=== PATIENT | female | born 1955 | race Caucasian/White ===

== ENCOUNTER 2018-12-22 07:11 | Outpatient (CLI) | payer MEDICARE, SELFPAY ==
[2018-12-22 09:02] LABS: Anion Gap 8.7 mmol/L (3-11); BUN 19 mg/dL (7-18); CO2 25.3 mmol/L (21.0-32.0); CREATININE 0.96 mg/dL (0.55-1.02); Calcium 8.9 mg/dL (8.5-10.1); Chloride 108 mmol/L (98-107); Cholesterol 160 mg/dL (50-200); Estimated GFR 58.51 (mL/min/1.73m2); Glucose 111 mg/dL (70-100); HDL Cholesterol 37 mg/dL (40-60); LDL CHOLESTEROL 96 mg/dL (<100); Sodium 142 mmol/L (136-145); Triglyceride 187 mg/dL (30-150)
== END 2018-12-22 07:31 ==
PROVIDERS: PCP Internal Medicine; Visit Provider Internal Medicine
DX: I25.10 Atherosclerotic heart disease of native coronary artery without angina pectoris (principal); I10 Essential (primary) hypertension
CPT/HCPCS: 36415; 80048; 80061; 83721

== ENCOUNTER 2019-05-17 13:03 | Outpatient (REF) | payer MEDICARE, SELFPAY | END 2019-05-17 13:23 | LOC: LBN 13:03 | PROVIDERS: PCP Internal Medicine; Visit Provider Internal Medicine | DX: R30.0 Dysuria (principal); R31.9 Hematuria, unspecified | CPT/HCPCS: 87077; 87086; 87186 ==

== ENCOUNTER 2019-07-06 00:11 | Outpatient (CLI) | payer MEDICARE, SELFPAY ==
--- NOTE | 2019-07-06 08:30 | ETT_ITS ---
*[facility]* *[facility]* [address] [place] [address] Stress Electrocardiography Martin protocol Date of study: 07/06/2019 *PATIENT PRESENTATION* Height: 154.9cm (61in) Blood Pressure: Weight: 72.7kg (160lb) BSA: 1.8m^2 Ordering physician: Gisselle Cope Impressions: - Normal study after maximal exercise with no EKG changes. - No objective findings of ischemia. - However, subjectively did describe symptoms of shoulder pain with exertion. Summary: 1. Stress: The target heart rate was achieved. Recommendations: Suggest referral to cardiology for further assessment. Indication: I25.10. History: REASON FOR TESTING: FOR THE PAST 6 YEAR PATIENT REPORTS MIDSTERNAL/EPIGASTRIC CHEST PAIN AND LEFT SHOULDER PAIN WHEN BREATHING IN COLD AIR. SHE STATES THESE SYMPTOMS ARE SIMILAR TO SYMPTOMS [SHE HAD] PRIOR TO STENT PLACEMENT--BUT NOT SEVERE. SHE ALSO REPORTS OCCASIONAL CHEST PAIN WITH AND WITHOUT ACTIVITY, AND TIMES WHERE SHE FEELS LIKE SHE CAN'T CATCH MY BREATH. PATIENT DENIES CHEST PAIN UPON ARRIVAL TO TESTING TODAY. SIGNIFICANT PAST MEDICAL HISTORY: ASCVD, 1 STENT--MID LAD IN 2012, PREDIABETES, GERD, ANXIETY. SMOKING STATUS: NEVER. EXERCISE ROUTINE: GARDENING SPLITTING (WITH WOOD SPLITTER) AND STACKING WOOD, DAILY ADL'S. Risk factors: Family history of coronary artery disease. Hypertension. Dyslipidemia. Cholesterol: 160mg/dl. HDL: 37mg/dl. LDL: 96mg/dl. Triglycerides: 187mg/dl. ALLERGIES: MORPHINE, PENICILLIN, BEES, OXYCODONE, TALWIN, SUMATRIPTAN. MEDICATIONS: TOPIRAMATE 200 MG BID, PROMETHAZINE 25 MG PRN, NITRO 0.4 MG PRN, HYDROXYZINE 25 MG HS, NEXIUM 40 MG DAILY, MIGRANAL 0.5 MG NS PRN, VITAMIN B 12--250 MG DAILY, CLONAZEPAM 0.5 MG BID, VITAMIN D 1000 UNITS DAILY, TUMS BID, ATORVASTATIN 40 MG DAILY, ATENENOL 25 MG DAILY, ASPIRIN 325 MG DAILY. Protocol: Martin protocol. Baseline ECG: SINUS RHYTHM. HR 79 BPM. Stress protocol: + +---+ + !Stage !HR !BP (mmHg) ! + +---+ + !Baseline supine !79 !120/72 (88) ! + +---+ + !Baseline standing !80 !132/80 (97) ! + +---+ + !Stage I; 1.7mph, 10degrees; 3 min !117!134/86 (102)! + +---+ + !Stage II; 2.5mph, 12degrees; 3 min!133!146/82 (103)! + +---+ + !Peak stress !143! ! + +---+ + !Recovery; 1 min !122!166/70 (102)! + +---+ + !Recovery; 3 min !119!154/68 (97) ! + +---+ + !Recovery; 6 min !103!144/72 (96) ! + +---+ + !Recovery; 9 min !97 !120/70 (87) ! + +---+ + !Recovery; 11 min !91 ! ! + +---+ + * Stress results: STRESS TEST ENDED IN 7 MINUTES 8 SECONDS. THIS NURSE STOPPED STRESS TEST PATIENT WAS REPORTING LEFT SHOULDER SHARP PAIN (4/10), WAS CRYING, HAD FACIAL GRIMACING, AND KEPT STATING I'M ALL RIGHT, I'M ALL RIGHT NORMAL HEART RATE AND BLOOD PRESSURE RESPONSE TO EXERCISE. MAX HEART RATE: 143. 92 % OF TARGET HEART RATE ACHIEVED. MET'S: 8.78. NO ECTOPY. LEFT SHOULDER SHARP PAIN (2/10) AND LEFT WRIST NEEDLE FEELING DISCOMFORT AT 3 MINUTES 49 SECONDS OF EXERCISE. LEFT SHOULDER SHARP PAIN (4/10) AT 5 MINUTES 22 SECONDS OF EXERCISE. LEFT SHOULDER SHARP PAIN (2/10) AT 8 MINUTES [address] DANIELLE, CLEAT THROWER, NOTIFIED. PATIENT LEFT STRESS LAB WITH 2/10 LEFT SHOULDER PAIN, AWARE. PATIENT STATED SHE FELT OKAY TO GO HOME AND WAS ENCOURAGED TO GO TO THE ER AT ANY POINT IF SHE FELT SHE NEEDED TO BE SEEN. NAUSEA AT 6 MINUTES AND 4 SECONDS OF EXERCISE. NAUSEA SUBSIDED BY 2 MINUTES 30 SECONDS OF RECOVERY. NO SIGNIFICANT ST SEGMENT CHANGES. AVERAGE FUNCTIONAL CAPACITY. The target heart rate was achieved. The rate-pressure product for the peak heart rate and blood pressure was 51564fu Hg/min. Study data: Marlene Danielle MD supervised and was readily available during the procedure. This study was interpreted by [facility]. Study status: Routine. Consent: The risks, benefits, and alternatives to the procedure were explained to the patient and informed consent was obtained. Procedure: Initial setup. A baseline ECG was recorded. Surface ECG leads and manual cuff blood pressure measurements were monitored. Heart sounds: Normal. Lung sounds: Normal. Treadmill exercise testing was performed using the Martin protocol. Study completion: The patient tolerated the procedure well and was discharged from the lab. Discharge: The patient left the laboratory in stable condition. Birthdate: Patient birthdate: 1955. Sex: Gender: female. Study date: Study date: 07/06/2019. Study time: 00:01 AM. Signature Documentation: The Stress ECG portion of this study was interpreted by Marlene Danielle MD. Electronically signed by Marlene Danielle 07/06/2019 11:38
== END 2019-07-06 00:31 ==
PROVIDERS: PCP Internal Medicine; Visit Provider Internal Medicine
DX: I25.10 Atherosclerotic heart disease of native coronary artery without angina pectoris (principal); M25.512 Pain in left shoulder; R07.89 Other chest pain; R73.03 Prediabetes; I10 Essential (primary) hypertension; E78.00 Pure hypercholesterolemia, unspecified
CPT/HCPCS: 93016; 93018; 93017

== ENCOUNTER 2019-10-09 08:49 | Outpatient (CLI) | payer MEDICARE, SELFPAY | END 2019-10-09 09:09 | PROVIDERS: PCP Internal Medicine; Visit Provider Internal Medicine Cardiovascular Disease | DX: M25.512 Pain in left shoulder (principal); Z98.61 Coronary angioplasty status | CPT/HCPCS: 99203; 99214; 93005; 93010 ==

== ENCOUNTER 2019-10-11 08:34 | Emergency (ER) | payer MEDICARE, SELFPAY ==
[2019-10-11] VITALS (26 sets, daily range): BP systolic 107–139; BP diastolic 58–70; PULSE 53–77; RESP 12–18; TEMP 36.2; O2SAT 92–100
--- NOTE | 2019-10-11 08:58 | ED.GENADUL_ITS ---
Discharge Plan Disposition Patient Disposition: HOME Condition: Improving Discharge Details Chief Complaint: Dizzy/Sync Clinical Impression: Acute labyrinthitis Primary Care Provider: Gisselle Cope ED Provider: Rosalino Guerrero Home Meds and New Rx's Prescriptions: No Action nitroglycerin [Nitrostat] 0.4 mg tablet, sublingual 0.4 mg Sublingual Q5 MIN PRN X3 PRN (Reason: chest pain) Qty: 30 RF: 0 dihydroergotamine [Migranal] 1 ML spray,non-aerosol 0.5 mg NS ONCE RF: 0 cyanocobalamin (vitamin B-12) [Vitamin B-12] 250 MCG tablet 250 mcg PO DAILY RF: 0 hydroxyzine HCl 25 MG tablet 25 mg PO HS RF: 0 cholecalciferol (vitamin D3) [Vitamin D3] 400 UNIT capsule 1,000 unit PO DAILY RF: 0 clonazepam 0.5 MG tablet 0.5 mg PO BID Qty: 1 RF: 0 calcium carbonate [Tums Ultra] 400 MG tablet,chewable 2 tab PO BID Qty: 1 RF: 0 atenolol 25 mg tablet 25 mg PO DAILY Qty: 90 RF: 3 atorvastatin 40 mg tablet 40 mg PO DAILY Qty: 90 RF: 3 esomeprazole magnesium [Nexium] 40 mg capsule,delayed release(DR/EC) 40 mg PO DAILY Qty: 90 RF: 3 topiramate [Topamax] 200 mg tablet 200 mg PO BID RF: 0 promethazine [Promethegan] 25 MG suppository 25 mg RC PRN PRNRF: 0 aspirin,buffd-calcium carb-mag 325 MG tablet 325 mg PO DAILY RF: 0 Medical Decision Making 64-year-old female presents from home complaining of dizziness and nausea that is worse with movement of the head. She will endorse some significant increase in anxiety at home. She has otherwise recently been well. Vital signs are normal and her neurologic exam is without deficit. Presentation seems most consistent with peripheral labyrinthitis. Most exclude an intracranial process, electrolyte abnormality, dehydration, acute coronary syndrome. Patient had screening EKG obtained, referred for laboratory testing, CT scan of the head. Labs are reassuring with a white count of 7, hematocrit 40, platelets 235. Chemistries sodium 144, potassium 3.9, chloride 108, bicarb 22, BUN 18, creatinine 1.0, LFTs unremarkable, troponin negative. CT scan of the head without acute intracranial findings. Following 1 L fluid, 2 mg of Valium, patient with some improvement. She is able to ambulate and urinate. Most consistent with a labyrinthitis, will offer meclizine for home. She stable and improving. Discussed with her home management as well as indications for emergent reevaluation. Lab Data Lab results reviewed: Yes I reviewed the patient's lab results. Labs: Laboratory Results - last 24 hr 10/11/19 10/11/19 08:47 08:47 WBC 7.27 RBC 4.12 Hgb 13.3 Hct 40.3 MCV 97.8 H MCH 32.3 MCHC 33.0 RDW 12.4 Plt Count 235 MPV 9.8 Immature Gran % 0.1 Neutrophils % 63.5 Lymphocytes % 22.1 Monocytes % 12.1 Eosinophils % 1.9 Basophils % 0.3 Absolute Neutrophils 4.61 Absolute Lymphocytes 1.61 Absolute Monocytes 0.88 H Absolute Eosinophils 0.14 Absolute Basophils 0.02 Sodium 144 Potassium 3.9 Chloride 108 H Carbon Dioxide 22.0 Anion Gap 14.0 H BUN 18 Creatinine 1.05 H Estimated GFR/1.73 m2 52.60 Glucose 128 H Calcium 8.9 Magnesium 2.2 Total Bilirubin 0.3 AST 13 L ALT 14 Alkaline Phosphatase 94 Troponin I < 0.05 Total Protein 7.6 Albumin 3.8 ECG Data Attestation: I personally reviewed and interpreted this ECG (s) as follows: Interpretation: Normal sinus rhythm, rate of 67, the QRS is narrow, there is low voltage throughout, no ST segment elevation. HPI General Mode of arrival: ambulatory . Date/Time Provider Initiated Documentation: 10/11/19 08:43 . Limitations to Documentation: no limitations . Information obtained by: patient and family . History of Present Illness 64 year old F presents to the emergency department with the chief complaint of Dizziness and vomiting, described as moderate and similar to prior episodes, and is localized to the head. Patient reports no radiation. Patient started experiencing this hour(s) and it has been intermittent. Rest improves symptom(s), Movement worsens symptoms . Patient notes loss of appetite, malaise, nausea/vomiting and other (No difficulty with speech. Able to walk from car.); denies chest pain, headaches and syncope. Patient did receive the following treatments prior to arrival, none Related Data Home Medications Medication Instructions Recorded Confirmed cyanocobalamin (vitamin B-12) 250 mcg PO DAILY 01/04/13 10/11/19 [Vitamin B-12] dihydroergotamine [Migranal] 0.5 mg NS ONCE spray 01/04/13 10/11/19 hydroxyzine HCl 25 mg PO HS 01/09/13 10/11/19 promethazine [Promethegan] 25 mg RC PRN PRN 05/05/13 10/11/19 cholecalciferol (vitamin D3) 1,000 unit PO DAILY 10/23/13 10/11/19 [Vitamin D] aspirin,buffd-calcium carb-mag 325 mg PO DAILY 04/13/14 10/11/19 calcium carbonate [Tums Ultra] 2 tab PO BID #1 tab.chew 11/30/14 10/11/19 clonazepam 0.5 mg PO BID #1 11/30/14 10/11/19 atenolol 25 mg tablet 25 mg PO DAILY #90 tab-cap 11/29/18 10/11/19 atorvastatin 40 mg tablet 40 mg PO DAILY #90 tab-cap 11/29/18 10/11/19 esomeprazole magnesium 40 mg 40 mg PO DAILY #90 cap 11/29/18 10/11/19 capsule,delayed release topiramate 200 mg tablet 200 mg PO BID 05/17/19 10/11/19 nitroglycerin 0.4 mg sublingual 0.4 mg SUBLINGUAL Q5 MIN PRN X3 06/27/19 10/11/19 tablet PRN #30 tab Previous Rx's Medication Instructions Recorded atenolol 25 mg tablet 25 mg PO DAILY #90 tab-cap 11/29/18 atorvastatin 40 mg tablet 40 mg PO DAILY #90 tab-cap 11/29/18 esomeprazole magnesium 40 mg 40 mg PO DAILY #90 cap 11/29/18 capsule,delayed release nitroglycerin 0.4 mg sublingual 0.4 mg SUBLINGUAL Q5 MIN PRN X3 06/27/19 tablet PRN #30 tab Allergies Allergy/AdvReac Type Severity Reaction Status Date / Time morphine Allergy Skin Rash Verified 10/11/19 08:41 Penicillins Allergy Skin Rash Verified 10/11/19 08:41 venom-honey bee Allergy Psychosis Verified 10/11/19 08:41 oxycodone AdvReac nausea and Verified 10/11/19 08:41 vomiting pentazocine lactate AdvReac Visual Verified 10/11/19 08:41 [From Alyce] Disturbances sumatriptan AdvReac Cardiac Verified 10/11/19 08:41 Dysrythmia General Stated Complaint: Dizzy/Sync REID: 2 Review of Systems Narrative: Denies recent illness. She has had significant increase in anxiety due to conflict in her town [facility] Surgical History (Updated 08/09/18 @ 11:31 by Kimberley Montgomery) Abdominal hysterectomy Appendectomy Cholecystectomy Oophrectomy, Both Family History Mother Essential hypertension Father Essential hypertension Sister Essential hypertension Brother Essential hypertension Social History Smoking/Tobacco Use Status: Never Alcohol Intake: never Drug use: Occasionally Substance use type: marijuana Household members: spouse Housing: house Communication Needs: None Current gender identity: female What is your relationship status?: Panel score (0-1 are the most socially isolated patients): 1 What type of physical activity do you participate in: none Seatbelt use: always Drive intox or ride w/intox public transit trolley driver: No Working smoke detector in home: Yes Carbon monox detector in home: Yes Do you feel safe at home: Yes Do you feel safe in your relationship?: Yes Exam Narrative Exam Narrative: GEN: awake, alert, oriented 3. Pleasant, well groomed, inte ractive. HEAD: Normocephalic, atraumatic ENT: Mucous membranes moist, oropharynx unremarkable, External ear exam unremarkable EYES: PERRL, EOMI NECK: Full ROM, no JAYCEE, no menigismus CHEST/RESP: Nontender, clear to auscultation bilateral, no wheeze/rhonchi/rales CARDIOVASCULAR: RRR, no murmur, rub markus. 2+ Rad pulse bilateral ABDOMEN: Soft, nontender, no mass. +Bowel sounds EXT: Full ROM, no edema, no rash Neuro: Grossly normal neurologic exam, conversant, interactive. Cranial nerves II through XII intact. Zafpei-bv-algi intact. Visual cesar intact to confrontation Psych: Speech fluent, thoughts congruent, affect normal Course Vital Signs Vital signs: Vital Signs Temperature 36.2 C L 10/11/19 08:37 Pulse 77 10/11/19 08:37 Respiratory Rate 16 10/11/19 08:37 Pulse Oximetry 99 10/11/19 08:37 Temperature 36.2 C L 10/11/19 08:37 Temperature Source Temporal Artery Scan 10/11/19 08:37 Pulse 77 10/11/19 08:37 Respiratory Rate 18 10/11/19 08:37 Respiratory Effort Non-Labored 10/11/19 08:37 Respiratory Depth Normal 10/11/19 08:37 Respiratory Pattern Normal 10/11/19 08:37 Pulse Oximetry 99 10/11/19 08:37 Oxygen Delivery Method Room Air 10/11/19 08:37 Oxygen Flow Rate 0 10/11/19 08:37 Pain Level 4 10/11/19 08:37
[2019-10-11] MEDS: Normal Saline 1,000 ML 1000 ML IV (09:07)
[2019-10-11] MEDS: diazePAM 10 MG/2 ML SYR 2 MG IVP (09:07)
[2019-10-11] MEDS: Ondansetron 4 MG/2 ML VIAL IVP (09:07)
[2019-10-11 09:18] LABS: Abs Immature Grans 0.01 k/cumm (0.0-0.09); Absolute Basophil Count 0.02 k/cumm (0.0-0.2); Absolute Eosinophil Count 0.14 k/cumm (0.0-0.7); Absolute Lymphocyte Count 1.61 k/cumm (1.2-3.4); Absolute Monocyte Count 0.88 k/cumm (0.11-0.7); Absolute Neutrophil Count 4.61 k/cumm (1.2-6.7); Basophils % 0.3; Eosinophils % 1.9; HCT 40.3 % (36.0-46.0); HGB 13.3 g/dL (12.0-15.5); Immature Grans % 0.1; Lymphocytes % 22.1; Mean Corpuscular Hemoglobin 32.3 pg (27.0-33.0); Mean Corpuscular Volume 97.8 fL (80-95); Mean Platelet Volume 9.8 fL (8.0-11.0); Monocytes % 12.1; Neutrophils % 63.5; Platelet Count 235 x1000/uL (130-400); RBC 4.12 m/cumm (4.00-5.20); RBC Distribution Width 12.4 % (11.7-14.6); White Blood Cell Count 7.27 k/cumm (4.4-10.8)
[2019-10-11 09:34] LABS: ALT 14 U/L (14-59); AST 13 U/L (15-37); Albumin 3.8 g/dL (3.4-5.0); Alkaline Phosphatase 94 U/L (46-116); BUN 18 mg/dL (7-18); Bilirubin, Total 0.3 mg/dL (0.2-1.0); CREATININE 1.05 mg/dL (0.55-1.02); Calcium 8.9 mg/dL (8.5-10.1); Chloride 108 mmol/L (98-107); Glucose 128 mg/dL (74-106); Magnesium 2.2 mg/dL (1.8-2.4); Potassium 3.9 mmol/L (3.5-5.1); Sodium 144 mmol/L (136-145); Total Protein 7.6 g/dL (6.4-8.2)
[2019-10-11 09:35] LABS: Troponin I < 0.05 ng/Ml (<0.06)
--- NOTE | 2019-10-11 09:43 | DI.CT_ITS ---
EXAM: CT HEAD WO CLINICAL HISTORY: dizziness, vomiting TECHNIQUE: The exam was performed utilizing the usual protocol. COMPARISON: No exams were available for comparison FINDINGS: There is normal deluca-white matter differentiation. No acute intracranial hemorrhage is present. The re is no acute midline shift or mass effect. The ventricles are intact. The basilar cisterns are pa tent. No fluid levels are seen in the visualized paranasal sinuses. Mastoid air cells are well pneu matized. The calvarium is intact. IMPRESSION: No acute intracranial process.
--- NOTE | 2019-10-11 10:37 | DI.VRAD_ITS ---
PROCEDURE INFORMATION: Exam: CT Head Without Contrast Exam date and time: 10/11/2019 9:44 AM Age: 64 years old Clinical indication: Dizziness and other: Vomitting TECHNIQUE: Imaging protocol: Computed tomography of the head without contrast. Radiation optimization: All CT scans at this facility use at least one of these dose optimization techniques: automated exposure control; mA and/or kV adjustment per patient size (includes targeted exams where dose is matched to clinical indication); or iterative reconstruction. COMPARISON: No relevant prior studies available. FINDINGS: Brain: Normal. No hemorrhage. Unremarkable white matter. No mass effect. Ventricles: Normal. No ventriculomegaly. Bones/joints: Unremarkable. No acute fracture. Sinuses: Visualized sinuses are unremarkable. No fluid levels. Mastoid air cells: Visualized mastoid air cells are well aerated. Soft tissues: Unremarkable. IMPRESSION: No CT evidence for acute intracranial abnormality. Dictated and Authenticated by: Josef Silverio MD. Ordering:ONEIDA Jerry MD
[2019-10-11] MEDS: Meclizine 12.5 MG TAB PO (12:07)
== END 2019-10-11 12:12 | disposition home or self-care (01) ==
PROVIDERS: Emergency Provider Emergency Medicine; PCP Internal Medicine
DX: R42 Dizziness and giddiness (principal); R11.0 Nausea; H83.09 Labyrinthitis, unspecified ear; F41.9 Anxiety disorder, unspecified
CPT/HCPCS: 36415; 80053; 93005; 96361; 96374; 96375; 99285; 70450; 83735; 84484; 85025; 93010; 99284; J2405; J3360

== ENCOUNTER 2019-10-24 13:25 | Outpatient (CLI) | payer MEDICARE, SELFPAY ==
--- NOTE | 2019-10-24 14:06 | DI.RAD_ITS ---
EXAM: XR SHOULDER LT COMPLETE 2+V INDICATION: Left Shoulder Pain. COMPARISON: No exams were available for comparison TECHNIQUE: 2D digital imaging was performed. FINDINGS: There is mild spurring at the AC joint and glenoid. Humeral head is normally positioned. A coronary artery stent is incidentally noted. IMPRESSION: Mild degenerative changes.
== END 2019-10-24 13:45 ==
PROVIDERS: PCP Internal Medicine; Referring Provider Internal Medicine; Visit Provider Student in an Organized Health Care Education/Training Program
DX: M25.512 Pain in left shoulder (principal); M19.012 Primary osteoarthritis, left shoulder
CPT/HCPCS: 99203; 99214; 73030

== ENCOUNTER 2020-04-17 04:43 | Outpatient (CLI) | payer MEDICARE, SELFPAY ==
--- NOTE | 2020-04-17 12:00 | NS.NUTBLAN_ITS ---
Jennifer is a 64 y/o female w/ recent dx DM2 and long hx prediabetes. She has been controlling BG with diet successfully but now presents with elevated A1c of 6.1. She has hx of stent placement, HLD, HTN. On Statin. On B-12 for micronutrient needs. She requires DM edu with self management techniques and practice using glucometer to help with understanding desired BG ranges. She reports that she eats a healthy diet and we reviewed her typical meals, beverages and physical activities. She appears motivated and mindful about food choices and provided appropriate examples and [facility]. She is concerned about her weight. She is currently 155lb which is 148% IBW. C/o headaches. Enc adequate fluids. Intervention: Provided education on menu planning with emphasis on incorporating proteins whenever any CHO's are included in the meal to help with BG spikes. Reviewed CHO counting and gave her some charts with the appropriate measurements of foods to achieve a goal of <60g/CHO per meal period. Explained the difference between refined and simple CHO's and the importance of fiber for BG control and mitigating LDL levels. This RD worked with Jennifer to take her BG ~1.5 hrs post prandial which was 94 ml/dl. Provided a review and literature of desired glucose ranges. Provided a food record chart so that she can track her BG levels and correlate it to her meal choices. Explained the importance of increased vegetable intake for satiety with appropriate weight loss of ~ 10 lbs. as a goal. Explained that she could obtain an inexpensive [employer]ion brand glucometer and affordable test strips from [employer] or approach her PCP to order one for her from the pharmacy. She was under the impression that the hospital would be providing the equipment for her which this RD clarified is not our SOP at this time. Provided contact information for patient follow up. Monitor And Evaluation: Jennifer agrees to discuss prescription for Glucometer and test strips with her PCP. Recommended Jennifer take her am FBG and two hours post prandial X1 week using food record. Jennifer will F/U with phone call to this RD to report her findings and set up Recommended reducing intake by 500 k/tara/day for desired weight loss of ~ 10lb in 10 weeks
== END 2020-04-17 05:03 ==
PROVIDERS: PCP Internal Medicine; Visit Provider Internal Medicine
DX: E11.9 Type 2 diabetes mellitus without complications (principal); Z71.3 Dietary counseling and surveillance
CPT/HCPCS: 97802

== ENCOUNTER 2020-04-30 11:16 | Outpatient (REF) | payer MEDICARE, SELFPAY | END 2020-04-30 11:36 | LOC: LBN 11:16 | PROVIDERS: PCP Internal Medicine; Visit Provider Internal Medicine | DX: N39.0 Urinary tract infection, site not specified (principal) | CPT/HCPCS: 87077; 87086; 87186 ==

== ENCOUNTER 2020-05-09 00:23 | Outpatient (CLI) | payer MEDICARE, SELFPAY ==
--- NOTE | 2020-05-09 | DI.MAMMO_ITS ---
EXAM: MG MAMMO SCREENING CLINICAL HISTORY: screening,Z12.39 TECHNIQUE: Bilateral full field digital CC and MLO mammographic images were obtained with 3D tomosyn thesis and utilizing computer aided detection (CAD). COMPARISON: Available for comparison. FINDINGS: Masses/Architectural Distortion: None seen. Microcalcifications: No suspicious pleomorphic-type are seen. Skin Thickening/Nipple Retraction: None. IMPRESSION: 1. No significant interval change with no specific features of malignancy noted. 2. Unless there is more urgent need, screening mammography is recommended, as per [employer] guidelines. BI-RADS Category 1 - Negative Breast Density - Category B - Scattered areas of fibroglandular density A negative radiographic report should not delay biopsy if a dominant or clinically suspicious mass is present. Up to ten percent of cancers are not identified on mammography. A negative report may reinforce clinical impression. Adenosis and dense breasts may obscure an underlying neoplasm. False positive reports average 6 to 10%. Patient will receive a letter notifying them of these results.
== END 2020-05-09 00:43 ==
PROVIDERS: PCP Internal Medicine; Visit Provider Internal Medicine
DX: Z12.31 Encounter for screening mammogram for malignant neoplasm of breast (principal); R92.2 Inconclusive mammogram
CPT/HCPCS: 77063; 77067

== ENCOUNTER 2020-06-17 04:47 | Outpatient (CLI) | payer MEDICARE, SELFPAY ==
[2020-06-17 09:34] LABS: Anion Gap 4.1 mmol/L (3-11); BUN 14 mg/dL (7-18); CO2 29.9 mmol/L (21.0-32.0); CREATININE 1.02 mg/dL (0.55-1.02); Calcium 8.8 mg/dL (8.5-10.1); Calculated LDL 95 mg/dL (<100); Chloride 111 mmol/L (98-107); Cholesterol 168 mg/dL (<200); Estimated GFR 54.22 (mL/min/1.73m2); Glucose 105 mg/dL (74-106); HDL Cholesterol 32 mg/dL (40-60); Potassium 4.3 mmol/L (3.5-5.1); Sodium 145 mmol/L (136-145); Triglyceride 205 mg/dL (<150)
== END 2020-06-17 05:07 ==
PROVIDERS: PCP Internal Medicine; Visit Provider Internal Medicine
DX: I10 Essential (primary) hypertension (principal); E78.00 Pure hypercholesterolemia, unspecified
CPT/HCPCS: 36415; 80048; 80061; 82043; 82570

== ENCOUNTER 2020-06-18 15:41 | Outpatient (REF) | payer MEDICARE, SELFPAY ==
[2020-06-18 16:30] LABS: COMMENT (LAB VIEW ONLY) 27.83 mg/dL; Microalb ug/mg Crea 12.2 ug/mg Cr
== END 2020-06-18 16:01 ==
LOC: LBN 15:41
PROVIDERS: PCP Internal Medicine; Visit Provider Internal Medicine
DX: E11.9 Type 2 diabetes mellitus without complications (principal)
CPT/HCPCS: 82043; 82570

== ENCOUNTER 2020-06-28 14:12 | Emergency (ER) | payer MEDICARE, SELFPAY ==
[2020-06-28 14:16] VITALS: BP 124/82; PULSE 86; RESP 20; TEMP 37; O2SAT 98
--- NOTE | 2020-06-28 14:20 | W.ED.GENAD ---
Discharge Plan Disposition Patient Disposition: HOME Condition: Stable Discharge Details Clinical Impression: Crushing injury of right index finger, initial encounter Primary Care Provider: Gisselle Cope ED Provider: Kimberly Naidu Meds and New Rx's Prescriptions: No Action (DME) blood sugar diagnostic Strip See Rx Instructions .ROUTE .MEDSUPPLY Qty: 100 RF: 3 (DME) blood-glucose meter Misc See Rx Instructions .ROUTE .MEDSUPPLY Qty: 1 RF: 0 (DME) lancets Misc See Rx Instructions .ROUTE .MEDSUPPLY Qty: 100 RF: 3 nitroglycerin [Nitrostat] 0.4 mg tablet, sublingual 0.4 mg Sublingual Q5 MIN PRN X3 PRN (Reason: chest pain) Qty: 30 RF: 0 dihydroergotamine [Migranal] 1 ML spray,non-aerosol 0.5 mg NS ONCE RF: 0 cyanocobalamin (vitamin B-12) [Vitamin B-12] 250 MCG tablet 250 mcg PO DAILY RF: 0 cholecalciferol (vitamin D3) [Vitamin D3] 400 UNIT capsule 1,000 unit PO DAILY RF: 0 calcium carbonate [Tums Ultra] 400 MG tablet,chewable 2 tab PO BID Qty: 1 RF: 0 atenolol 25 mg tablet 25 mg PO DAILY Qty: 90 RF: 3 atorvastatin 40 mg tablet 40 mg PO DAILY Qty: 90 RF: 3 esomeprazole magnesium [Nexium] 40 mg capsule,delayed release(DR/EC) 40 mg PO DAILY Qty: 90 RF: 3 clonazepam 0.5 mg tablet 0.5 mg PO BID Qty: 1 RF: 0 hydroxyzine HCl 25 mg tablet 25 mg PO HS RF: 0 topiramate [Topamax] 200 mg tablet 100 mg PO BID RF: 0 promethazine [Promethegan] 25 MG suppository 25 mg RC PRN PRNRF: 0 aspirin,buffd-calcium carb-mag 325 MG tablet 325 mg PO DAILY RF: 0 Discharge Instructions Instructions: Crush Injury (ED) Additional Instructions: Today your x-rays show no evidence for fracture or dislocation. Rest, ice, compression and elevation. Please take Tylenol or Ibuprofen with food every 4-6 hours as needed for pain and swelling. Follow up with primary care provider in 3-5 days. Return to ED sooner if any worsening or concerns. Increase oral fluids. Return for any significant increase in pain not relieved by medications, any concerns. The numbness should go away within 1 week after the swelling goes down. Referrals: Gisselle Cope MD [Primary Care Provider] - Discharge Data Discharge Date/Time-TO BE ENTERED AT DEPARTURE: 06/28/20 15:07 Medical Decision Making 65-year-old female presents to the ER with chief complaint of left index finger crush injury. This occurred approximately 40 minutes prior to arrival. She states that she got her finger smashed in between a log splitter and a flat surface. She then began with a headache prior to arrival. She is complaining of the distal tip of her finger to be swollen and painful. Pain radiates up into her upper extremity. She has no obvious deformity there is mild swelling and contusion noted. She has some decreased motion noted to her DIP joint. EXAM: XR FINGER RT INDEX CLINICAL HISTORY: Crush Injury. TECHNIQUE: 2D digital imaging was performed. COMPARISON: No exams were available for comparison FINDINGS: There is no evidence of fracture or dislocation. Degenerative changes are seen of the interphalangeal joints. There is no radiopaque foreign body. IMPRESSION: No evidence of acute fracture, dislocation, or subluxation. Patient instructed on rest, ice, compression elevation verbalized understanding. Discussed x-ray results, verbalized understanding. Patient's been hemodynamically stable , and to follow-up with PCP. This text was generated using [employer] system, please disregard any oddities of phrase or misspellings. HPI General Mode of arrival: ambulatory. Date/Time Provider Initiated Documentation: 06/28/20 14:14. Limitations to Documentation: no limitations. Information obtained by: patient. HPI Narrative: 65-year-old female presents to the ER with chief complaint of left index finger crush injury. This occurred approximately 40 minutes prior to arrival. She states that she got her finger smashed in between a log splitter and a flat surface. She then began with a headache prior to arrival. She is complaining of the distal tip of her finger to be swollen and painful. Pain radiates up into her upper extremity. She has no obvious deformity there is mild swelling and contusion noted. She has some decreased motion noted to her DIP joint. Related Data Home Medications Medication Instructions Recorded Confirmed cyanocobalamin (vitamin B-12) 250 mcg PO DAILY 01/04/13 06/28/20 [Vitamin B-12] dihydroergotamine [Migranal] 0.5 mg NS ONCE spray 01/04/13 06/28/20 promethazine [Promethegan] 25 mg RC PRN PRN 05/05/13 06/28/20 cholecalciferol (vitamin D3) 1,000 unit PO DAILY 10/23/13 06/28/20 [Vitamin D3] aspirin,buffd-calcium carb-mag 325 mg PO DAILY 04/13/14 06/28/20 calcium carbonate [Tums Ultra] 2 tab PO BID #1 tab.chew 11/30/14 06/28/20 nitroglycerin 0.4 mg sublingual 0.4 mg SUBLINGUAL Q5 MIN PRN X3 06/27/19 06/28/20 tablet PRN #30 tab atenolol 25 mg tablet 25 mg PO DAILY #90 tab-cap 11/15/19 04/30/20 atorvastatin 40 mg tablet 40 mg PO DAILY #90 tab-cap 11/15/19 06/28/20 esomeprazole magnesium 40 mg 40 mg PO DAILY #90 cap 11/15/19 06/28/20 capsule,delayed release topiramate 200 mg tablet 100 mg PO BID tab 12/26/19 06/28/20 clonazepam 0.5 mg tablet 0.5 mg PO BID #1 04/10/20 06/28/20 hydroxyzine HCl 25 mg tablet 25 mg PO HS 04/10/20 06/28/20 blood sugar diagnostic #100 each 05/01/20 05/01/20 blood-glucose meter #1 each 05/01/20 05/01/20 lancets #100 each 05/01/20 05/01/20 Previous Rx's Medication Instructions Recorded nitroglycerin 0.4 mg sublingual 0.4 mg SUBLINGUAL Q5 MIN PRN X3 06/27/19 tablet PRN #30 tab atenolol 25 mg tablet 25 mg PO DAILY #90 tab-cap 11/15/19 atorvastatin 40 mg tablet 40 mg PO DAILY #90 tab-cap 11/15/19 esomeprazole magnesium 40 mg 40 mg PO DAILY #90 cap 11/15/19 capsule,delayed release blood sugar diagnostic #100 each 05/01/20 blood-glucose meter #1 each 05/01/20 lancets #100 each 05/01/20 Allergies Allergy/AdvReac Type Severity Reaction Status Date / Time morphine Allergy Skin Rash Verified 06/28/20 14:19 Penicillins Allergy Skin Rash Verified 06/28/20 14:19 venom-honey bee Allergy Psychosis Verified 06/28/20 14:19 oxycodone AdvReac nausea and Verified 06/28/20 14:19 vomiting pentazocine lactate AdvReac Visual Verified 06/28/20 14:19 [From Talwin] Disturbances sumatriptan AdvReac Cardiac Verified 06/28/20 14:19 Dysrythmia General Stated Complaint: Orthopedic REID: 4 Review of Systems All systems reviewed & are unremarkable except as noted in HPI and below Musculoskeletal Musculoskeletal: Reports arthralgias and Reports joint swelling (Right index finger) [facility] Medical History Trigger point of left shoulder region parascapular Surgical History Abdominal hysterectomy Appendectomy Cholecystectomy Oophrectomy, Both Family History Mother Essential hypertension Cancer Breast cancer then Ovarian cancer. Ovarian cancer surgery revealed ovarian cancer wrapped around the colon. Nothing done, 2 wks later Breast cancer Ovarian cancer Father Essential hypertension Lewy body dementia Diabetes insipidus Hyperlipidemia Sister Essential hypertension Alcohol abuse complicated by CKD requiring dialysis; refused dialysis so of CKD Brother Essential hypertension Alcohol abuse Cirrhosis; of heart attack Heart disease Brother Prostate cancer metastatic to lungs; resected; recurred; suicide Alcohol abuse Depression suicide Social History Smoking/Tobacco Use Status: Never Alcohol Intake: never Drug use: Occasionally Substance use type: marijuana Household members: spouse Housing: house Communication Needs: None Current gender identity: female What is your relationship status?: Panel score (0-1 are the most socially isolated patients): 1 What type of physical activity do you participate in: none Seatbelt use: always Drive intox or ride w/intox stake driver: No Working smoke detector in home: Yes Carbon monox detector in home: Yes Do you feel safe at home: Yes Do you feel safe in your relationship?: Yes Exam Narrative Exam Narrative: Constitutional: Alert and oriented x3. Appears stated age. Normal body habitus. Head: Normocephalic, no trauma. Eyes: Pupils PERRLA, Red reflex noted, EOM's intact. Eyelids symmetrical without lesions, discharge, or swelling. ENT: Bilateral TM's WNL, External ear normal to inspection, no mastoid TTP, swelling, or erythema, Nasal turbinates WNL, no nasal discharge. Normal dentition, Posterior pharynx WNL, no exudate. Chest: RRR, Normal S1, S2, distal pulses intact. Resp: Lungs clear to auscultation bilaterally, no wheezes, rales, or rhonchi. Musculoskeletal: Normal gait, 5/5 strength to all four extremities. Skin: No suspicious rashes or lesions. Capillary refill less than 2 sec. Neurologic: Cranial nerves II-XII intact. Alert and oriented x 3. DTR's intact. Hematologic/Lymphatic: No ecchymosis, no lymphadenopathy. Extrem Hand/finger images: 1. Tenderness swelling Course Vital Signs Vital signs: Vital Signs Temperature 37 C 06/28/20 14:16 Pulse 86 06/28/20 14:16 Respiratory Rate 06/28/20 14:16 Blood Pressure 124/82 06/28/20 14:16 Pulse Oximetry 98 06/28/20 14:16 Temperature 37 C 06/28/20 14:16 Temperature Source Skin 06/28/20 14:16 Pulse 86 06/28/20 14:16 Respiratory Rate 06/28/20 14:16 Blood Pressure 124/82 06/28/20 14:16 Blood Pressure Position Sitting 06/28/20 14:16 Pulse Oximetry 98 06/28/20 14:16 Oxygen Delivery Method Room Air 06/28/20 14:16 Oxygen Flow Rate 0 06/28/20 14:16 Pain Level 7 06/28/20 14:16
[2020-06-28] MEDS: Acetaminophen 500 MG TAB PO (14:24)
--- NOTE | 2020-06-28 14:39 | DI.RAD_ITS ---
EXAM: XR FINGER RT INDEX CLINICAL HISTORY: Crush Injury. TECHNIQUE: 2D digital imaging was performed. COMPARISON: No exams were available for comparison FINDINGS: There is no evidence of fracture or dislocation. Degenerative changes are seen of the interphalangea l joints. There is no radiopaque foreign body. IMPRESSION: No evidence of acute fracture, dislocation, or subluxation. DATA REPOSITORY: RADIATION DOSE DELIVERED:
[2020-06-28 15:08] VITALS: BP 124/82; PULSE 86; RESP 20; TEMP 37; O2SAT 98
== END 2020-06-28 15:07 | disposition home or self-care (01) ==
PROVIDERS: Emergency Provider Registered Nurse Emergency; PCP Internal Medicine
DX: S67.190A Crushing injury of right index finger, initial encounter (principal); S60.021A Contusion of right index finger without damage to nail, initial encounter; W23.0XXA Caught, crushed, jammed, or pinched between moving objects, initial encounter; R51 Headache
CPT/HCPCS: 99283; 73140

== ENCOUNTER 2021-08-22 03:29 | Outpatient (CLI) | payer MEDICARE, SELFPAY ==
[2021-08-22 13:09] LABS: Anion Gap 10.3 mmol/L (3-11); BUN 18 mg/dL (7-18); CO2 24.7 mmol/L (21.0-32.0); CREATININE 1.1 mg/dL (0.55-1.02); Calcium 9.1 mg/dL (8.5-10.1); Calculated LDL 74 mg/dL (<100); Chloride 109 mmol/L (98-107); Cholesterol 140 mg/dL (<200); Estimated GFR 49.54 (mL/min/1.73m2); Glucose 90 mg/dL (74-106); HDL Cholesterol 36 mg/dL (40-60); Potassium 4.1 mmol/L (3.5-5.1); Sodium 144 mmol/L (136-145); Triglyceride 153 mg/dL (<150)
[2021-08-22 14:09] LABS: COMMENT (LAB VIEW ONLY) 188.18 mg/dL; Microalb ug/mg Crea 3.5 ug/mg Cr
== END 2021-08-22 03:30 | disposition home or self-care (01) ==
LOC: LOS 03:30
PROVIDERS: PCP Internal Medicine; Visit Provider Internal Medicine
DX: E11.9 Type 2 diabetes mellitus without complications (principal); I10 Essential (primary) hypertension; E78.5 Hyperlipidemia, unspecified
CPT/HCPCS: 36415; 80048; 80061; 82043; 82570

== ENCOUNTER 2021-09-16 13:01 | Outpatient (REF) | payer MEDICARE, SELFPAY | END 2021-09-16 13:02 | disposition home or self-care (01) | LOC: LBN 13:01 | PROVIDERS: PCP Internal Medicine; Referring Provider Internal Medicine; Visit Provider Internal Medicine | DX: R35.0 Frequency of micturition (principal) | CPT/HCPCS: 87086 ==

== ENCOUNTER → 2021-09-30 00:59 | Outpatient (CLI) | payer MEDICARE, SELFPAY ==
--- NOTE | 2021-09-30 06:45 | DI.US_ITS ---
Exam(s) US RENAL EXAM: US RENAL CLINICAL HISTORY: Decreased GFR,CHRONIC KIDNEY DISEASE,N18.9. TECHNIQUE: Mckeon scale, color and spectral Doppler were used. COMPARISON: No exams were available for comparison FINDINGS: Renal size in cm: Right: 10.3. Left: 9.3. Echogenicity: Normal. Hydronephrosis: No. Cyst or mass: No. Nephrolithiasis: No. Other findings: None. Bladder:No gross abnormality sonographically. The urinary bladder was not adequately filled for comp lete evaluation. Ureteral jets: Right: Visualized and unremarkable. Left: Visualized and unremarkable. Prevoid vol:30 cc Renal color flow: Symmetric and within normal limits. IMPRESSION: 1. No renal mass, calculus or hydronephrosis. 2. Limited evaluation of the urinary bladder due to low volume. DATA REPOSITORY:
== END ==
PROVIDERS: PCP Internal Medicine; Visit Provider Internal Medicine
DX: N18.9 Chronic kidney disease, unspecified (principal)
CPT/HCPCS: 76770

== ENCOUNTER → 2022-02-12 09:29 | Outpatient (BNVA) | payer MEDICARE, SELFPAY | PROVIDERS: PCP Internal Medicine; Referring Provider Internal Medicine; Visit Provider Surgery | DX: K91.5 Postcholecystectomy syndrome (principal); E11.9 Type 2 diabetes mellitus without complications; N18.9 Chronic kidney disease, unspecified; K58.2 Mixed irritable bowel syndrome; R19.7 Diarrhea, unspecified; K21.9 Gastro-esophageal reflux disease without esophagitis; I25.10 Atherosclerotic heart disease of native coronary artery without angina pectoris; I10 Essential (primary) hypertension; E78.5 Hyperlipidemia, unspecified; Z90.49 Acquired absence of other specified parts of digestive tract | CPT/HCPCS: 99204; 99243 ==

== ENCOUNTER 2022-03-02 03:14 | Outpatient (CLI) | payer MEDICARE, SELFPAY ==
[2022-03-02 12:03] LABS: Source Nasal/Nares
[2022-03-02 14:45] LABS: COVID-19 PCR Negative (Negative)
== END 2022-03-02 03:15 | disposition home or self-care (01) ==
LOC: LBO 03:14
PROVIDERS: PCP Internal Medicine; Visit Provider Surgery
DX: Z20.822 Contact with and (suspected) exposure to COVID-19 (principal); Z01.818 Encounter for other preprocedural examination
CPT/HCPCS: 87635

== ENCOUNTER 2022-03-03 06:11 | Day surgery (SDC) | payer MEDICARE, SELFPAY ==
[2022-03-03 06:31] VITALS: BP 103/81; PULSE 77; RESP 17; TEMP 36.4; O2SAT 97
[2022-03-03] MEDS: Lactated Ringers 1,000 ML 80 ML IV (06:48)
--- NOTE | 2022-03-03 07:12 | W.ANESPRE ---
General Info Date of Service Date Performed: 03/03/22 Height: 5 ft 1 in Weight: 64.2 kg Body Mass Index (BMI): 26.7 Surgical Procedure: Operation Date: 03/03/22 07:35 Proposed Procedure Side Surgeon p Colonoscopy/Gastroscopy Renee Salamanca DO Actual Procedure Side Surgeon p Colonoscopy/Gastroscopy Renee Salamanca, Meds Allergies and Home Medications Allergies Allergy/AdvReac Type Severity Reaction Status Date / Time epinephrine Allergy Severe Verified 03/03/22 06:50 morphine Allergy Skin Rash Verified 03/03/22 06:50 Penicillins Allergy Skin Rash Verified 03/03/22 06:50 venom-honey bee Allergy Psychosis Verified 03/03/22 06:50 oxycodone AdvReac nausea and Verified 03/03/22 06:50 vomiting pentazocine lactate AdvReac Visual Verified 03/03/22 06:50 [From Alyce] Disturbances sumatriptan AdvReac Cardiac Verified 03/03/22 06:50 Dysrythmia Home Medication Medication Instructions Recorded cyanocobalamin (vitamin B-12) 250 250 mcg PO DAILY 01/04/13 mcg tablet (Vitamin B-12) dihydroergotamine 0.5 mg/pump act. 0.5 mg NS ONCE 01/04/13 (4 mg/mL) nasal spray (Migranal) promethazine 25 mg rectal 25 mg RC PRN PRN 05/05/13 suppository (Promethegan) cholecalciferol (vitamin D3) 10 1,000 unit PO DAILY 10/23/13 mcg (400 unit) capsule (Vitamin D3) aspirin,buffered (calcium 325 mg PO DAILY 04/13/14 carbonate-magnesium) 325 mg tablet calcium carbonate 400 mg calcium 2 tab PO BID ##1 11/30/14 (1,000 mg) chewable tablet (Tums Ultra) nitroglycerin 0.4 mg sublingual 0.4 mg sublingual Q5 MIN PRN X3 06/27/19 tablet (Nitrostat) PRN chest pain #30 tabs topiramate 200 mg tablet (Topamax) 100 mg PO BID 12/26/19 clonazepam 0.5 mg tablet 0.5 mg PO BID ##1 04/10/20 blood sugar diagnostic #100 ea 05/01/20 lancets #100 ea 05/01/20 blood-glucose meter #1 ea 08/14/21 atenolol 25 mg tablet 25 mg PO DAILY #90 tab-caps 12/17/21 atorvastatin 40 mg tablet 40 mg PO DAILY #90 tab-caps 12/17/21 esomeprazole magnesium 40 mg 40 mg PO DAILY #90 caps 12/17/21 capsule,delayed release (Nexium) gabapentin 100 mg capsule 200 mg PO QHS shoulder pain #60 12/17/21 caps magnesium citrate 150 ml PO ONCE obstipation #296 mL 01/13/22 lisinopril 2.5 mg tablet 2.5 mg PO DAILY #90 tabs 02/03/22 bisacodyl 5 mg tablet,delayed 5 mg PO ONCE #4 tabs 02/12/22 release (Dulcolax (bisacodyl)) hydroxyzine HCl 25 mg tablet 12.5 mg PO HS 02/12/22 polyethylene glycol 3350 17 17 g PO ONCE #238 grams 02/12/22 gram/dose oral powder aspirin 325 mg tablet 325 mg PO DAILY 03/02/22 Current Visit Medications: Current Medications Generic Name Dose Route Start Last Admin Trade Name Freq PRN Reason Stop Dose Admin Ringer's Solution 1,000 mls @ 80 mls/hr 03/03/22 06:00 03/03/22 06:48 IV 04/01/22 23:59 80 mls/hr INFUSION MAMTA Administration IV Miscellaneous Supplies 1 each 03/03/22 06:00 Iv Access IV 04/01/22 23:59 DIRECTED MAMTA Sodium Chloride 0 ml 03/03/22 06:00 Normal Saline Flush 10 Ml Syr IV 04/01/22 23:59 PRN PRN Sodium Chloride 0 ml 03/03/22 06:00 Normal Saline 10 Ml Vial IJ 04/01/22 23:59 DIRECTED PRN Sterile Water 0 ml 03/03/22 06:00 Water,Injection,Sterile 10 Ml Vial IJ 04/01/22 23:59 DIRECTED PRN PFSH Active Problems Active Problems: Problem Status Onset Code Coronary arteriosclerosis I25.10 Benign hypertension I10 Hyperlipidemia E78.5 Agoraphobia F40.00 Migraine G43.909 Shoulder pain M25.519 Thoracic radiculopathy M54.14 Anxiety state, unspecified 01/06/12 F41.1 Dissociative disorder 05/16/13 F44.9 Status post percutaneous transluminal coronary angioplasty 01/06/13 Z98.61 Irritable bowel K58.9 Trigger point of left shoulder region M25.512 Type 2 diabetes mellitus without complication E11.9 Vertigo R42 Atypical chest pain R07.89 Need for prophylaxis against urinary tract infection Z29.8 Chronic kidney disease (CKD) N18.9 GERD (gastroesophageal reflux disease) K21.9 Postcholecystectomy diarrhea R19.7, Z90.49 SBO (small bowel obstruction) K56.609 Fecal soiling due to fecal incontinence R15.9 Medical History Medical History Atypical angina pt. states she doesn't have an issues with this. F/U with a single needle operator 1.5 years ago, Dr. Rosenbaum. Crushing injury of right index finger, initial encounter Right shoulder tendinitis (10/22/15) Visit for review of DEXA scan (02/13/14) T -2.8 wrist,normal elsewhere. NOT osteoporosis since osteoporosis not defined by wrist density. Rheumatology -2013 Surgical History Surgical History Abdominal hysterectomy Appendectomy Cholecystectomy Oophrectomy, Both Tobacco Smoking/Tobacco Use Status: Never Alcohol Alcohol Intake: never Substance Use Substance use: Occasionally Substance use type: marijuana Details: last used 03/02/22 Vital Signs and Lab Results Vital Signs Most Recent Vital Signs in EMR: Most Recent Vital Signs Temp Pulse Resp BP Pulse Ox 36.4 C L 77 17 103/81 97 03/03/22 06:31 03/03/22 06:31 03/03/22 06:31 03/03/22 06:31 03/03/22 06:31 Point of Care Results Point of Care Results: Finger Stick Blood Glucose 114 03/03/22 06:40 Lab Results Blood Type / Crossmatch: No Data to Display Complete Blood Count: No Data to Display Complete Metabolic Panel: Hemoglobin A1c 5.8 % (4.5-5.7) H 02/03/22 08:52 Liver Function Panel: No Data to Display Coagulation Panel: No Data to Display Cardiac Panel: No Data to Display Arterial Blood Gas: No Data to Display Venous Blood Gas: No Data to Display Pancreas Panel: No Data to Display Thyroid Panel: No Data to Display Infectious Disease: Coronavirus (COVID-19)(PCR) Negative (Negative) 03/02/22 08:00 Coronavirus 2019 Source Nasal/Nares 03/02/22 08:00 Blood Cultures: No Data to Display Toxicology Panel: No Data to Display Anesthesia Assessment and Plan Anesthesia History Personal History: PONV Family History: No Family History of Anesthesia Complications Exercise Tolerance Exercise Tolerance: Metabolic Equivalents>4 Pertinent Negatives Pertinent Negatives: No Symptoms of GERD (Well controlled with medication ), No Major Cardiovascular Symptoms or Complaints, No Major Pulmonary Symptoms or Complaints and No History of CVA/TIA Cardiac & Pulmonary Exam Cardiac Exam: Normal S1/S2 Heart Sounds Pulmonary Exam: Clear Bilateral Breath Sounds Implantable Cardiac Device Does patient have a Pacemaker or an ICD?: No Airway Exam Known Difficult Airway: No Mallampati Class: 1 Mouth Opening: Normal (> 3cm) Thyromental Distance: Greater than 3 cm Neck Range of Motion: Full ROM Neck Circumference: Normal Teeth Condition: Normal Dentition and Generalized Poor Dentition ASA Classification ASA Score: ASA 2 Emergency Case?: No NPO Status NPO Status: NPO Clears >2 hours, Solids >8 hours Anesthesia Plan Resuscitation Status: Full Code Anesthesia Technique: General Anesthesia Airway Planned: Natural Airway Monitors Used: Standard Monitors
[2022-03-03 07:15] VITALS: BMI 26.7
--- NOTE | 2022-03-03 07:52 | STOM_PTH ---
PATIENT: Jennifer Roche LOC: [facility] U#:[id number] AGE/SX: 66/F ROOM: RE03/03/[address]: Renee Salamanca : 1955 BED: DIS: 03/03/2022 SPEC #: [id number] RECD: 03/03/22 12:20 STATUS: JUDY HIGH #: [id number] LUKAS: 03/03/22 07:[address]: Renee Salamanca DEPT: Surgical Specimen RECD BY: Agata Mak ENTERED: 03/03/22 12:23 SP TYPE: STOMACH OTHR DR: Gisselle Cope MD Tissues: 1 - BIOPSY BOWEL 2 - STOMACH BIOPSY 3 - STOMACH BIOPSY 4 - ESOPHAGUS BIOPSY 5 - ESOPHAGUS BIOPSY 6 - ESOPHAGUS BIOPSY Procedures: GROSS AND MICRO LEVEL 4 Comments: [id number]
[2022-03-03 08:40] VITALS: BP 116/84; PULSE 66; RESP 17; TEMP 36.2; O2SAT 97
--- NOTE | 2022-03-03 08:40 | COLE_ITS ---
Colonoscopy Report Date of procedure: 03/03/22 Pre-op diagnosis general: diarrhea/incont Post-op diagnosis procedure note: other (poor rectal tone/sigmoid diverticula) Surgeon: Renee Salamanca Anesthesia Type: General:No Airway Estimated blood loss (mL): 0 Pathology: none sent Complications: None Disposition: same day Prep: Miralax/Dulcolax Retraction Time: 8 Procedure Description: After informed consent was obtained the patient was taken to the procedure room and placed in a left decubitous position. Monitors were applied and a time out was done. The patients name, date of , procedure, allergies to medications and metal in their body was reviewed. The patient was then sedated. Once sedated and comfortable a rectal exam was done. External exam was normal. Pt exhibits poor rectal tone. She is grossly incont of stool. She has severe vaginal atrophy. I was unable to do a pelvic exam on her. The scope was then introduced and retrofelexed. no internal hemorrhoids were identified. The scope was then advanced to the cecum w/out difficulty. The TI and appendiceal orifice were identified. The prep was BBPS I in an all segments for a total of 3. There is particulate matter that continued to clog the scope. The scope was then slowly retracted over 8 minutes back into the rectum. No polyps are visualized today. But with poor prep, lesions less than .5 cm might have been missed. She has moderate diverticular disease that does extend all th e way over to the transverse colon. There is no signs of active bleeding or infection. She does appear to have very poor pelvic tone. The sigmoid colon is very redundant and lax. The scope was removed and the patient was woken up and taken back to Same day surgery in stable condition. The patient tolerated the procedure well and there were no immediate complications. Follow up: The patient should follow up in 5 years (b/c of poor prep), unless they develop changes in bowel habits or other new gastrointestinal complaints.
--- NOTE | 2022-03-03 08:40 | W.ANESPOSTOP ---
Postoperative Evaluation Date, Time and Location Date Performed: 03/03/22 Time Performed: 08:40 Patient Location: Day Surgery Unit Vital Signs Most Recent Imported Vital Signs: Most Recent Vital Signs Temp Pulse Resp BP Pulse Ox 36.4 C L 77 17 103/81 97 03/03/22 06:31 03/03/22 06:31 03/03/22 06:31 03/03/22 06:31 03/03/22 06:31 Most Recent Manually Entered Vital Signs: Adult Blood Pressure: 116/84 Heart Rate: 65 Respirations: 10 Oxygen Saturation (%): 96 Temperature (C): 36.2 C Pain Score (0-10 Scale): 0 Pain Score Most Recent Pain Score: Most Recent Pain Score Pain Level 0 03/03/22 06:31 Assessment Mental Status: Awake (Alert & Oriented to Patient Baseline) Airway and Respiratory Function: Patent airway with normal (patient baseline) respiratory exam Cardiovascular Function: Hemodynamically Stable Hydration Status: Adequately Hydrated Nausea & Vomiting: No Nausea or Vomiting Pain: Pt. Denies Any Pain Peripheral Nerve Block: Patient did not receive a nerve block
[2022-03-03 08:41] VITALS: BP 116/84; PULSE 65; RESP 10; TEMPC 36.2; O2SAT 96
--- NOTE | 2022-03-03 08:44 | ENDO_ITS ---
Date of service: 03/03/22 Time of Service: 07:44 Endoscopy Report DATE OF PROCEDURE: 03/03/22 PRE-OP DIAGNOSIS: abdominal pain/medicatio refractory GERD. POST-OP DIAGNOSIS: other (sliding hiatal hernia/bile reflux gastritis) SURGEON: Renee Salamanca ANESTHESIA TYPE: General:No Airway ESTIMATED BLOOD LOSS: 1 PATHOLOGY: other COMPLICATIONS: None DISPOSITION: same day PROCEDURE DESCRIPTION: After informed consent was obtained the patient was take to the procedure room a nd placed in a supine position. Monitors were applied and a time out was done. The patients name, date of , procedure type, allergies to medications and metal in their body was reviewed. A bite block was placed and the patient was sedated. Once sedated and comfortable the gastroscope was advanced through the oropharynx which was grossly normal into the esophagus. There are no esophageal erosions, varices, diverticula, or stricture.. She does have a 2 cm sliding- type hiatal hernia. There are mild changes at the GE junction that could suggest Anthony's. She had some very small areas 1 mm islands of squamous tissue above the GE junction. the scope was advanced into the stomach and through the pylorus into the 3rd portion of the duodenum. The duodenum was noted to be nl. Biopsies were done all specimens retrieved and no bleeding is noted. Upon entering the stomach there is a significant amount of bile within the stomach at least 20cc. There is moderate gastritis radiating from the antrum in a striped fashion. There is no active bleeding. The duodenal bulb was noted with no ulcers or erosions. The scope was retracted back into the stomach and biopsies were done to rule out H. pylori. The scope was retroflexed. The cardia and fundus were noted to be normal. The scope was retracted back into the esophagus and biopsies were done of the GE junction to rule out Anthony's. The Z line was irregular. The GE junction was at [] cm. The scope was removed and the patient was woken up and taken back to [facility] in stable condition. Follow up:
--- NOTE | 2022-03-03 08:49 | PDOC.DSDIS_ITS ---
Discharge Plan Disposition Patient Disposition: HOME Condition: Good Discharge Details Reason For Visit: stomach and colon scope Attending Provider: Renee Salamanca Primary Care Provider: Gisselle Cope Home Meds and New Rx's Prescriptions: New pantoprazole [Protonix] 40 mg tablet,delayed release (DR/EC) 40 mg PO DAILY Qty: 90 12RF sucralfate [Carafate] 1 gram tablet 1 g PO QACHS Qty: 120 12RF Rx Instructions: can dissolve is water and drink as a slurry Continued (DME) blood sugar diagnostic Strip See Rx Instructions .ROUTE .MEDSUPPLY Qty: 100 3RF Rx Instructions: PROVIDE PER INSURANCE COVERAGE. QD TESTING. e11.9 no insulin (DME) lancets Misc See Rx Instructions .ROUTE .MEDSUPPLY Qty: 100 3RF Rx Instructions: Provide per insurance coverage. QD testing. E11.9 nitroglycerin [Nitrostat] 0.4 mg tablet, sublingual 0.4 mg Sublingual Q5 MIN PRN X3 PRN (Reason: chest pain) Qty: 30 0RF Label Comments: 12/25/15 Pt states she has not required any since 10/23/15. PG lisinopril 2.5 mg tablet 2.5 mg PO DAILY Qty: 90 3RF Rx Instructions: to prevent diabetes injury to the kidneys dihydroergotamine [Migranal] 1 ML spray,non-aerosol 0.5 mg NS ONCE Rx Instructions: Dr. Buck cyanocobalamin (vitamin B-12) [Vitamin B-12] 250 MCG tablet 250 mcg PO DAILY Rx Instructions: Dr. Buck, Stopped 3 wks ago due to high Vit B 12 level cgc 05/27/13 cholecalciferol (vitamin D3) [Vitamin D3] 400 UNIT capsule 1,000 unit PO DAILY calcium carbonate [Tums Ultra] 400 MG tablet,chewable 2 tab PO BID Qty: 1 Label Comments: 12/25/15 Pt states 1 tab BID. PG clonazepam 0.5 mg tablet 0.5 mg PO BID Qty: 1 Label Comments: 12/25/15 Pt states taking 0.25mg BID. PG Rx Instructions: takes 1/[address] Ira Mcneal ([facility] – [place]) blood-glucose meter Misc See Rx Instructions .ROUTE .MEDSUPPLY Qty: 1 0RF Rx Instructions: REPLACE LOST METER. PROVIDE PER INSURANCE COVERAGE. QD TESTING E11.9 atenolol 25 mg tablet 25 mg PO DAILY Qty: 90 3RF Rx Instructions: for blood pressure atorvastatin 40 mg tablet 40 mg PO DAILY Qty: 90 3RF gabapentin 100 mg capsule 200 mg PO QHS Qty: 60 2RF hydroxyzine HCl 25 mg tablet 12.5 mg PO HS Label Comments: takes every night @ HS and PRN headaches Rx Instructions: Heber Hinojosa. topiramate [Topamax] 200 mg tablet 100 mg PO BID Label Comments: 05/17/19 taking 100mg in am and 200mg at night per Dr Buck 10/12/19 taking 100mg bid per Dr Arthur Rx Instructions: Dr. Buck promethazine [Promethegan] 25 MG suppository 25 mg RC PRN PRN Rx Instructions: Dr. Buck aspirin 325 mg Tablet 325 mg PO DAILY Discontinued bisacodyl [Dulcolax (bisacodyl)] 5 mg tablet,delayed release (DR/EC) 5 mg PO ONCE Qty: 4 0RF Rx Instructions: Take according to provider's instructions for colonoscopy prep. polyethylene glycol 3350 17 gram/dose powder 17 g PO ONCE Qty: 238 0RF Rx Instructions: To be taken as directed by prescriber's office for colonoscopy prep. magnesium citrate Solution 150 ml PO ONCE Qty: 296 0RF Rx Instructions: drink 1/2 bottle. If no relief, finish the bottle. esomeprazole magnesium [Nexium] 40 mg capsule,delayed release(DR/EC) 40 mg PO DAILY Qty: 90 3RF aspirin,buffd-calcium carb-mag 325 MG tablet 325 mg PO DAILY Discharge Instructions Additional Instructions: DSU Colonoscopy Post- Op Instructions Instructions for Everyone who is given Anesthesia: For your safety, please do the following for the next twenty-four (24) hours: *Do Not operate a motor vehicle (car, truck, motorcycle, etc.) *Do Not drink alcoholic beverages or use any recreational drugs for the first 24 hours or while taking pain medications. The medications in your body may have a reaction that can be dangerous. *Do Not make any important decisions or sign any important papers. Findings: -hiatal hernia -moderate bile reflux gastritis -sigmoid diverticula -vaginal atrophy/poor pelvic tone Follow up: Dr. Salamanca in 2 wks -consider appt w/ [facility] to d/w hormonal cream for vaginal atrophy 1. No lifting over 20 pounds or strenuous activity for the first 24 hours after your procedure. After 24 hours there are no restrictions on your activity but you may feel fatigued for a few days. 2. After you arrive home you may have a light meal and return to your normal diet as you can tolerate it without feeling sick to your stomach. 3. You may have a bloated, gaseous feeling in your belly (abdomen) after a colonoscopy. Passing gas and belching will help. Walking or lying down on your left side with your knees flexed may relieve the discomfort. Call the office at [phone] (Office) or [phone] (Hospital) right away if you notice any of the following: a.Vomiting of blood or ?coffee ground stools?. b.Rectal bleeding 1Tbsp, blood clots or continuous bleeding. c.Severe belly (abdominal) pain. d.A hard distended belly (abdomen) and an inability to pass gas. 4. Please don?t expect to have a normal BM (bowel movement) for 2-3 days after your procedure. 5. If there are questions regarding the findings of your procedure, please contact your doctor 6. If you are unable to contact your doctor with a problem, contact the hospital at [phone]. 7. Continue all your regular medications unless directed otherwise. I understand the above instructions and have no questions. Signature of Patient or Adult Escort Name of Responsible Adult Escort Signature of Nurse Date/Time Discharge Orders Discharge Orders: Discharge Order (Routine); Ordered 03/03/22 Ordered By: Renee Salamanca
[2022-03-03 09:09] VITALS: BP 144/77; PULSE 65; RESP 16; TEMP 36.2; O2SAT 98
== END 2022-03-03 10:38 | disposition home or self-care (01) ==
PROVIDERS: PCP Internal Medicine; Visit Provider Surgery
PROC: (CPT 43239; principal; 2022-03-03 07:30)
DX: R19.7 Diarrhea, unspecified (principal); K57.30 Diverticulosis of large intestine without perforation or abscess without bleeding; K21.9 Gastro-esophageal reflux disease without esophagitis; K44.9 Diaphragmatic hernia without obstruction or gangrene; K29.70 Gastritis, unspecified, without bleeding; I12.9 Hypertensive chronic kidney disease with stage 1 through stage 4 chronic kidney disease, or unspecified chronic kidney disease; E11.22 Type 2 diabetes mellitus with diabetic chronic kidney disease; N18.9 Chronic kidney disease, unspecified; K22.89 Other specified disease of esophagus; K31.89 Other diseases of stomach and duodenum
CPT/HCPCS: 43239; 45378; 88305

== ENCOUNTER 2022-03-10 10:58 | Outpatient (REF) | payer MEDICARE, SELFPAY | END 2022-03-10 10:59 | disposition home or self-care (01) | LOC: LBN 10:58 | PROVIDERS: PCP Internal Medicine; Visit Provider Internal Medicine | DX: R35.0 Frequency of micturition (principal); R39.15 Urgency of urination | CPT/HCPCS: 87086 ==

== ENCOUNTER → 2022-03-19 08:42 | Outpatient (BNVA) | payer MEDICARE, SELFPAY | PROVIDERS: PCP Internal Medicine; Referring Provider Internal Medicine; Visit Provider Surgery | DX: K44.9 Diaphragmatic hernia without obstruction or gangrene (principal); K21.9 Gastro-esophageal reflux disease without esophagitis; R15.9 Full incontinence of feces; R32 Unspecified urinary incontinence; M62.89 Other specified disorders of muscle; N81.9 Female genital prolapse, unspecified; K57.30 Diverticulosis of large intestine without perforation or abscess without bleeding; Z87.448 Personal history of other diseases of urinary system; Z98.890 Other specified postprocedural states | CPT/HCPCS: 99213 ==

== ENCOUNTER 2022-10-27 00:42 | Outpatient (CLI) | payer MEDICARE, SELFPAY ==
--- NOTE | 2022-10-27 08:00 | DI.MAMMO_ITS ---
Exam(s) MAMMO SCREENING EXAM: MAMMO SCREENING CLINICAL HISTORY: screening,z12.39 TECHNIQUE: Bilateral full field digital CC and MLO mammographic images were obtained with 3D tomosyn thesis and utilizing computer aided detection (CAD). COMPARISON: Available for comparison. FINDINGS: Masses/Architectural Distortion: None seen. Microcalcifications: No suspicious pleomorphic-type are seen. Skin Thickening/Nipple Retraction: None. IMPRESSION: 1. No significant interval change with no specific features of malignancy noted. 2. Unless there is more urgent need, screening mammography is recommended, as per [employer] [place] guidelines. BI-RADS Category 1 - Negative Breast Density - Category B - Scattered areas of fibroglandular density Breast density category C or D implies that the patient has dense breast tissue. Dense breast tissue is very common and is not abnormal but dense breast tissue can make it harder to find cancer on a ma mmogram. Also, dense breast tissue may increase their breast cancer risk. This information about the result of the mammogram report was provided to the patient to raise their awareness. Use this report when you speak with the patient about their risks for breast cancer, which includes their family hist ory. At that time, you may recommend for more screening tests (Ultrasound or MRI) as they might be us eful based on their risk. A negative radiographic report should not delay biopsy if a dominant or clinically suspicious mass is present. Up to ten percent of cancers are not identified on mammography. A negative report may reinforce clinical impression. Adenosis and dense breasts may obscure an underlying neoplasm. False positive reports average 6 to 10%. Patient will receive a letter notifying them of these results.
== END 2022-10-27 01:02 ==
PROVIDERS: PCP Nurse Practitioner Adult Health; Visit Provider Obstetrics & Gynecology
DX: Z12.31 Encounter for screening mammogram for malignant neoplasm of breast (principal)
CPT/HCPCS: 77063; 77067

== ENCOUNTER 2022-11-05 10:14 | Outpatient (CLI) | payer MEDICARE, SELFPAY ==
--- NOTE | 2022-11-05 10:00 | RT.EKG_ITS ---
APPROVED REPORT Exam: Resting ECG Reason for Exam: Left arm, chest pain Patient Location: O HR:62 bpm ECG Measurements Heart Rate 62 AXIS ND 156 P 11 QRSd 77 QRS 8 QT 430 T 58 QTc 437 Conclusion Sinus rhythm...normal P axis, V-rate 50- 99 Low voltage, extremity and precordial leads...extremity<0.5mV, precordial<1.0mV
== END 2022-11-05 10:15 | disposition home or self-care (01) ==
LOC: DI.KIM 10:15
PROVIDERS: PCP Nurse Practitioner Adult Health; Visit Provider Nurse Practitioner Family
DX: M79.602 Pain in left arm (principal); R07.9 Chest pain, unspecified
CPT/HCPCS: 93010

== ENCOUNTER 2022-11-05 10:57 | Emergency (ER) | payer MEDICARE, SELFPAY ==
[2022-11-05] VITALS (12 sets, daily range): BP systolic 104–140; BP diastolic 39–88; PULSE 60–72; RESP 0–24; TEMP 37.1; O2SAT 98–99
--- NOTE | 2022-11-05 10:45 | RT.EKG_ITS ---
APPROVED REPORT Exam: Resting ECG Reason for Exam: chest pain Patient Location: E HR:57 bpm ECG Measurements Heart Rate 57 AXIS WV 163 P 44 QRSd 79 QRS 4 QT 420 T 60 QTc 409 Conclusion Sinus bradycardia...rate< 60 Low voltage, extremity and precordial leads...extremity<0.5mV, precordial<1.0mV sinus bradycardia, normal axis, normal intervals, nonischemic
--- NOTE | 2022-11-05 11:00 | DI.RAD_ITS ---
Exam(s) XR CHEST 2V PA LATERAL EXAM: XR CHEST 2V PA LATERAL CLINICAL HISTORY: Chest pain. TECHNIQUE: 2D digital imaging was performed. COMPARISON: CR CHEST 2 VIEWS PA,LAT from 10/24/2015 FINDINGS: 2 views: Heart size is normal. The mediastinum is not widened. Lungs are clear. No infiltrates nor pleural effusions. IMPRESSION: No acute pulmonary findings. DATA REPOSITORY: RADIATION DOSE DELIVERED:
--- NOTE | 2022-11-05 11:15 | ED.GENADUL_ITS ---
Discharge Plan Disposition Patient Disposition: Home Condition: Stable Discharge Details Clinical Impression: Chest pain Primary Care Provider: Tiffany Greenfield ED Provider: Kimberly Naidu Home Meds and New Rx's Prescriptions: Continued (DME) blood sugar diagnostic Strip See Rx Instructions .ROUTE .MEDSUPPLY Qty: 100 3RF Rx Instructions: PROVIDE PER INSURANCE COVERAGE. QD TESTING. e11.9 no insulin (DME) lancets Misc See Rx Instructions .ROUTE .MEDSUPPLY Qty: 100 3RF Rx Instructions: Provide per insurance coverage. QD testing. E11.9 gabapentin 100 mg capsule 200 mg PO QHS Qty: 180 1RF estradiol [Vagifem] 10 mcg tablet 10 mcg vaginal .Twice weekly 360 Days Qty: 30 3RF nitroglycerin [Nitrostat] 0.4 mg tablet, sublingual 0.4 mg Sublingual Q5 MIN PRN X3 PRN (Reason: chest pain) Qty: 30 0RF Label Comments: 12/25/15 Pt states she has not required any since 10/23/15. PG lisinopril 2.5 mg tablet 2.5 mg PO DAILY Qty: 90 3RF Rx Instructions: to prevent diabetes injury to the kidneys dihydroergotamine [Migranal] 1 ML spray,non-aerosol 0.5 mg NS ONCE Rx Instructions: Dr. Buck cyanocobalamin (vitamin B-12) [Vitamin B-12] 250 MCG tablet 250 mcg PO DAILY Rx Instructions: Dr. Buck, Stopped 3 wks ago due to high Vit B 12 level cgc 05/27/13 cholecalciferol (vitamin D3) [Vitamin D3] 400 UNIT capsule 1,000 unit PO DAILY calcium carbonate [Tums Ultra] 400 MG tablet,chewable 2 tab PO BID Qty: 1 Label Comments: 12/25/15 Pt states 1 tab BID. PG clonazepam 0.5 mg tablet 0.5 mg PO BID Qty: 1 Label Comments: 12/25/15 Pt states taking 0.25mg BID. PG Rx Instructions: takes 1/[address] [place] [place] [facility] [place] See Rx Instructions .ROUTE .MEDSUPPLY Qty: 1 0RF Rx Instructions: REPLACE LOST METER. PROVIDE PER INSURANCE COVERAGE. QD TESTING E11.9 atenolol 25 mg tablet 25 mg PO DAILY Qty: 90 3RF Rx Instructions: for blood pressure atorvastatin 40 mg tablet 40 mg PO DAILY Qty: 90 3RF hydroxyzine HCl 25 mg tablet 12.5 mg PO HS Label Comments: takes every night @ HS and PRN headaches Rx Instructions: Heber Hinojosa. esomeprazole magnesium [Nexium] 40 mg capsule,delayed release(/EC) 40 mg PO DAILY Qty: 90 6RF topiramate [Topamax] 200 mg tablet 100 mg PO BID Label Comments: 05/17/19 taking 100mg in am and 200mg at night per Dr Buck 10/12/19 taking 100mg bid per Dr Arthur Rx Instructions: Dr. Buck promethazine [Promethegan] 25 MG suppository 25 mg RC PRN PRN Rx Instructions: Dr. Buck Discharge Instructions Instructions: Chest Pain (ED) Additional Instructions: Please follow-up with your PCP and/or ink jet operator for further eval. Discuss getting a stress test or echo. At this time troponin is within normal limits, EKG shows no evidence of STEMI, chest x-ray also within normal limits. No evidence of pneumonia. No evidence of blood clots or CHF. Follow up with primary care provider in 3-5 days. Return to ED sooner if any worsening or concerns. Increase oral fluids. Referrals: Tiffany Greenfield CLINICAL APPEALS REVIEWER [Primary Care Provider] - 1 week Discharge Data Discharge Date/Time-TO BE ENTERED AT DEPARTURE: 11/05/22 12:55 Medical Decision Making 67-year-old female presents to the ER with chief complaint of left-sided chest pain which began approximately 3 days ago she describes as pressure and heaviness into her left arm. She reports some nausea and and diarrhea which is not new for her. Denies any abdominal pain no vomiting. She denies any shortness of breath, cough, or respiratory type symptoms. EKG was reviewed by Dr. Rosalio Reinoso ER attending, please see his official report no evidence for STEMI at this time. Heart score is a 4 Cardiac work-up ordered including serial troponins. Patient is currently waiting for her to get out of surgery for rotator cuff she may not be willing to wait the 3 hours. I did explain the reasoning behind this. 1236: CBC shows no leukocytosis, hemoglobin 13.3 hematocrit 41.4, bili is 216 PT 9.3 INR 0.9 magnesium 2.2, initial troponin less than 50 proBNP within normal limits 195. Of 39: Patient reevaluation she reports no return of chest pain or left arm heaviness. She does not wish to wait for the second serial troponin. I feel this is reasonable since her symptoms have been ongoing for the last 3 days she has remained chest pain-free during the duration of her stay. I did instruct her to follow-up with Dr. Rosenbaum and/or PCP to discuss stress test and or echo. She verbalizes understanding all her questions were answered to the best my ability. This text was generated using [employer] system, please disregard any oddities of phrase or misspellings. Medical Records Medical records reviewed: Yes I reviewed the patient's medical records. Medical records narrative: Past medical history coronary arthrosclerosis, hyperlipidemia patient had a stent placed approximately 10 years ago last stress test and echo approximately 3 years ago. Type 2 diabetes chronic kidney disease GERD Imaging Data Radiologic Study: Imaging: X-Ray Radiologist's impression: EXAM:? XR CHEST 2V PA ? LATERAL CLINICAL HISTORY: ? Chest pain. ? TECHNIQUE:? 2D digital imaging was performed. COMPARISON:? CR CHEST 2 VIEWS PA,LAT from 10/24/2015 FINDINGS: 2 views: Heart size is normal.? The mediastinum is not widened. Lungs are clear.? No infiltrates nor pleural effusions. IMPRESSION: No acute pulmonary findings. ECG Data Prior ECG tracings: available for review Core Measures AMI Core Measures Followed: Yes (Given Aspirin due to benefits outweighing risks) HPI General Mode of arrival: ambulatory . Date/Time Provider Initiated Documentation: 11/05/22 10:58 . Limitations to Documentation: no limitations . Information obtained by: patient, RN notes reviewed and old records reviewed . HPI Narrative: 67-year-old female presents to the ER with chief complaint of left-sided chest pain which began approximately 3 days ago she describes as pressure and heaviness into her left arm. She reports some nausea and and diarrhea which is not new for her. Denies any abdominal pain no vomiting. She denies any shortness of breath, cough, or respiratory type symptoms. She is fully vaccinated for COVID. She has a past medical history of GERD chronic kidney disease small bowel obstruction, diarrhea type 2 diabetes mellitus which is diet controlled, coronary artery sclerosis with a stent placed approximately 10 years ago she does take atorvastatin lisinopril. She did not take any aspirin today. She is not currently having any discomfort in her chest or arm heaviness.. Patient also endorses some increased swelling into her legs and hands over the last couple of days. She denies any long trips in a car plane no redness noted no fever or chills. Related Data Home Medications Medication Instructions Recorded Confirmed cyanocobalamin (vitamin B-12) 250 250 mcg PO DAILY 01/04/13 11/05/22 mcg tablet (Vitamin B-12) dihydroergotamine 0.5 mg/pump act. 0.5 mg NS ONCE 01/04/13 11/05/22 (4 mg/mL) nasal spray (Migranal) promethazine 25 mg rectal 25 mg RC PRN PRN 05/05/13 11/05/22 suppository (Promethegan) cholecalciferol (vitamin D3) 10 1,000 unit PO DAILY 10/23/13 11/05/22 mcg (400 unit) capsule (Vitamin D3) calcium carbonate 400 mg calcium 2 tab PO BID ##1 11/30/14 11/05/22 (1,000 mg) chewable tablet (Tums Ultra) nitroglycerin 0.4 mg sublingual 0.4 mg sublingual Q5 MIN PRN X3 06/27/19 11/05/22 tablet (Nitrostat) PRN chest pain #30 tabs topiramate 200 mg tablet (Topamax) 100 mg PO BID 12/26/19 11/05/22 clonazepam 0.5 mg tablet 0.5 mg PO BID ##1 04/10/20 11/05/22 blood sugar diagnostic #100 ea 05/01/20 11/05/22 lancets #100 ea 05/01/20 11/05/22 blood-glucose meter #1 ea 08/14/21 11/05/22 atenolol 25 mg tablet 25 mg PO DAILY #90 tab-caps 12/17/21 11/05/22 atorvastatin 40 mg tablet 40 mg PO DAILY #90 tab-caps 12/17/21 11/05/22 lisinopril 2.5 mg tablet 2.5 mg PO DAILY #90 tabs 02/03/22 11/05/22 hydroxyzine HCl 25 mg tablet 12.5 mg PO HS 02/12/22 11/05/22 estradiol 10 mcg vaginal tablet 10 mcg vaginal .Twice weekly 12 03/11/22 11/05/22 (Vagifem) months #30 tabs esomeprazole magnesium 40 mg 40 mg PO DAILY #90 caps 06/15/22 11/05/22 capsule,delayed release (Nexium) gabapentin 100 mg capsule 200 mg PO QHS shoulder pain #180 08/07/22 11/05/22 caps Previous Rx's Medication Instructions Recorded nitroglycerin 0.4 mg sublingual 0.4 mg sublingual Q5 MIN PRN X3 06/27/19 tablet (Nitrostat) PRN chest pain #30 tabs blood sugar diagnostic #100 ea 05/01/20 lancets #100 ea 05/01/20 blood-glucose meter #1 ea 08/14/21 atenolol 25 mg tablet 25 mg PO DAILY #90 tab-caps 12/17/21 atorvastatin 40 mg tablet 40 mg PO DAILY #90 tab-caps 12/17/21 lisinopril 2.5 mg tablet 2.5 mg PO DAILY #90 tabs 02/03/22 estradiol 10 mcg vaginal tablet 10 mcg vaginal .Twice weekly 12 03/11/22 (Vagifem) months #30 tabs esomeprazole magnesium 40 mg 40 mg PO DAILY #90 caps 06/15/22 capsule,delayed release (Nexium) gabapentin 100 mg capsule 200 mg PO QHS shoulder pain #180 08/07/22 caps Allergies Allergy/AdvReac Type Severity Reaction Status Date / Time epinephrine Allergy Severe Verified 11/05/22 11:06 morphine Allergy Skin Rash Verified 11/05/22 11:06 Penicillins Allergy Skin Rash Verified 11/05/22 11:06 venom-honey bee Allergy Psychosis Verified 11/05/22 11:06 oxycodone AdvReac nausea and Verified 11/05/22 11:06 vomiting pentazocine lactate AdvReac Visual Verified 11/05/22 11:06 [From Alyce] Disturbances sumatriptan AdvReac Cardiac Verified 11/05/22 11:06 Dysrythmia General Stated Complaint: Chest Pain REID: 2 Review of Systems All systems reviewed & are unremarkable except as noted in HPI and below Cardiovascular Cardiovascular: Reports as per HPI, Reports chest pain, Denies rapid heart rate, Reports leg edema and Reports radiating jaw, neck or arm pain Gastrointestinal Gastrointestinal: Reports nausea and Denies vomiting PFSH All Active Problems (Updated 11/05/22 @ 12:42 by Kimberly Naidu NP) Chest pain (Acute) Pain in right toe(s) (Acute) ?Podiatry vs. 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 Reportedly getting weakness in her arms and legs since the cardiac cath and has noted slightly more swelling in the left leg when active. Benign hypertension (Chronic) Hyperlipidemia (Chronic) Migraine (Chronic) Shoulder pain (Active ~2011) Left shoulder strain, May 2012, when she was hit by her dog. Currently in Physical Therapy. Thoracic radiculopathy (Active) Presumed nerve entrapment from cholecystectomy. 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 Normal MRI, MRA. Video EEG monitoring and withdrawl of Topamax Klonopin did not produce any epileptic abnormalities or any of her typical spells. EEG remained normal. ( 07/11/12) Irritable bowel (Chronic) Type 2 diabetes mellitus without complication (Acute) Atypical chest pain (Chronic) Chronic kidney disease (CKD) (Chronic) GERD (gastroesophageal reflux disease) (Chronic) Postcholecystectomy diarrhea (Acute) SBO (small bowel obstruction) (Acute) Fecal soiling due to fecal incontinence (Acute) Medical History Agoraphobia Atypical angina pt. states she doesn't have an issues with this. F/U with a ink jet operator 1.5 years ago, Dr. Rosenbaum. 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 NOT osteoporosis since osteoporosis not defined by wrist density. Rheumatology -2013 Surgical History Abdominal hysterectomy Appendectomy Cholecystectomy History of colonoscopy (~03/03/22) Poor prep, repeat 5 yrs, Stoiber Oophrectomy, Both Status post percutaneous transluminal coronary angioplasty (01/06/13) S/P stent of completely occluded mid-LAD Trigger point of left shoulder region parascapular Family History Mother Essential hypertension Cancer Breast cancer then Ovarian cancer. Ovarian cancer surgery revealed ovarian cancer wrapped around the colon. Nothing done, 2 wks later Breast cancer Ovarian cancer Father Essential hypertension Lewy body dementia Diabetes insipidus Hyperlipidemia Sister Essential hypertension Alcohol abuse complicated by CKD requiring dialysis; refused dialysis so of CKD Brother Essential hypertension Alcohol abuse Cirrhosis; of heart attack Heart disease Brother Prostate cancer metastatic to lungs; resected; recurred; suicide Alcohol abuse Depression suicide Social History Smoking/Tobacco Use Status: Never Smoking risk assessment performed?: Yes Alcohol Intake: never Drug use: Occasionally Substance use type: marijuana Details: last used 03/02/22 Household members: spouse Housing: house Communication Needs: None Current gender identity: female What is your relationship status?: Panel score (0-1 are the most socially isolated patients): 1 What type of physical activity do you participate in: none Seatbelt use: always Drive intox or ride w/intox 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 Appears stated age. Normal body habitus. Head: Normocephalic, no trauma. Eyes: Pupils PERRL, Red reflex noted, EOM's intact. Eyelids symmetrical without lesions, discharge, or swelling. ENT: Bilateral TM's WNL, External ear normal to inspection, no mastoid TTP, swelling, or erythema, Nasal turbinates WNL, no nasal discharge. Normal dentition, Posterior pharynx WNL, no exudate. Chest: RRR, Normal S1, S2, distal pulses intact. Resp: Lungs clear to auscultation bilaterally, no wheezes, rales, or rhonchi. Abdomen: Soft, non-distended, Normoactive bowel sounds all 4 quads. Musculoskeletal: Normal gait, 5/5 strength to all four extremities. Skin: No suspicious rashes or lesions. Capillary refill less than 2 sec. Neurologic: Cranial nerves II-XII intact. Alert and oriented x 3. Motor: No deficits noted. Sensory: Intact bilaterally all 4 extremities. Reflexes: DTR's intact bilaterally.. Hematologic/Lymphatic: No ecchymosis, no lymphadenopathy. Course Vital Signs Vital signs: Vital Signs Temperature 37.1 C 11/05/22 11:00 Pulse 70 11/05/22 11:00 Respiratory Rate 18 11/05/22 11:00 Blood Pressure 140/73 11/05/22 11:00 Pulse Oximetry 99 11/05/22 11:00 Temperature 37.1 C 11/05/22 11:00 Temperature Source Temporal Artery Scan 11/05/22 11:00 Pulse 70 11/05/22 11:00 Respiratory Rate 18 11/05/22 11:00 Respiratory Effort 11/05/22 11:05 Blood Pressure 140/73 11/05/22 11:00 Blood Pressure Position Sitting 11/05/22 11:00 Pulse Oximetry 99 11/05/22 11:00 Oxygen Delivery Method Room Air 11/05/22 11:00 Oxygen Flow Rate 0 11/05/22 11:00 Pain Level 4 11/05/22 11:00
[2022-11-05] MEDS: Aspirin 81 MG CHEW 324 MG CH (11:19)
[2022-11-05 11:25] LABS: Abs Immature Grans 0.01 10^3/uL (0.0-0.06); Absolute Basophil Count 0.03 10^3/uL (0.0-0.2); Absolute Eosinophil Count 0.23 10^3/uL (0.0-0.7); Absolute Lymphocyte Count 2.14 10^3/uL (1.2-3.4); Absolute Monocyte Count 0.82 10^3/uL (0.1-0.8); Absolute Neutrophil Count 3.89 10^3/uL (1.2-6.7); Basophils % 0.4; Eosinophils % 3.2; HCT 41.4 % (36.0-46.0); HGB 13.3 g/dL (11.2-15.7); Immature Grans % 0.1; Lymphocytes % 30.1; MCH 32.5 pg (27.0-33.0); MCHC 32.1 % (32.0-36.0); MCV 101 fL (80-95); MPV 9.2 fL (8.0-11.0); Monocytes % 11.5; Neutrophils % 54.7; Platelet Count 216 10^3/uL (130-400); RBC 4.09 10^6/uL (3.93-5.22); RDW 13.2 % (11.7-14.6); RDW-SD 49.5 fL; WBC 7.12 10^3/uL (4.4-10.8)
[2022-11-05 11:40] LABS: INR 0.9 (0.9-1.1); PTT Activated 26.5 sec (21.0-27.5); Prothrombin Time 9.3 sec (9.3-11.0)
[2022-11-05 11:54] LABS: ALT 17 U/L (14-59); AST 16 U/L (15-37); Alkaline Phosphatase 107 U/L (46-116); Anion Gap 8.7 mmol/L (3-11); BUN 18 mg/dL (7-18); Bilirubin, Total 0.4 mg/dL (0.2-1.0); CO2 26.3 mmol/L (21.0-32.0); Chloride 107 mmol/L (98-107); Estimated GFR 61.36 (mL/min/1.73m2); Glucose 104 mg/dL (74-106); Magnesium 2.2 mg/dL (1.8-2.4); NT-proBNP 195 pg/mL (<300); Potassium 3.7 mmol/L (3.5-5.1); Sodium 142 mmol/L (136-145); Total Protein 8.3 g/dL (6.4-8.2); Troponin I < 50 ng/L (<or=60)
== END 2022-11-05 12:55 | disposition home or self-care (01) ==
PROVIDERS: Emergency Provider Registered Nurse Emergency; PCP Nurse Practitioner Adult Health
DX: R07.89 Other chest pain (principal); M79.602 Pain in left arm; R11.0 Nausea; R19.7 Diarrhea, unspecified; E11.22 Type 2 diabetes mellitus with diabetic chronic kidney disease; N18.9 Chronic kidney disease, unspecified; I25.10 Atherosclerotic heart disease of native coronary artery without angina pectoris; Z95.5 Presence of coronary angioplasty implant and graft
CPT/HCPCS: 36415; 80053; 93005; 99283; 71046; 83735; 83880; 84484; 85025; 85610; 85730; 93010; 99285

== ENCOUNTER 2022-11-16 15:22 | Outpatient (CLI) | payer MEDICARE, SELFPAY ==
--- NOTE | 2022-11-16 13:45 | DI.RAD_ITS ---
Exam(s) XR THORACIC SPINE COMPLETE EXAM: XR THORACIC SPINE COMPLETE CLINICAL HISTORY: Chronic upper back pain after trauma,m54.9. TECHNIQUE: 2D digital imaging was performed of the thoracic spine. Three views were obtained. AP, swimmer's and lateral views were obtained. COMPARISON: CR XR CHEST 2V PA LATERAL from 11/05/2022 FINDINGS: BONES: There is no fracture or destructive lesion. There are endplate osteophytes. DISKS:Alignment is within normal limits. There is mild disc space narrowing in the midthoracic spine. SOFT TISSUE: Visualized lungs are clear. IMPRESSION: Degenerative changes in the thoracic spine. DATA REPOSITORY: RADIATION DOSE DELIVERED:
== END 2022-11-16 15:42 ==
LOC: DI 15:23
PROVIDERS: PCP Nurse Practitioner Adult Health; Visit Provider Family Medicine
DX: G89.29 Other chronic pain; M51.34 Other intervertebral disc degeneration, thoracic region
CPT/HCPCS: 72072

== ENCOUNTER 2023-01-29 01:20 | Outpatient (CLI) | payer MEDICARE, SELFPAY ==
[2023-01-29 08:33] LABS: COMMENT (LAB VIEW ONLY) 63.82 mg/dL; Microalb ug/mg Crea 8.6 ug/mg Cr
[2023-01-29 08:34] LABS: Anion Gap 6.4 mmol/L (3-11); BUN 18 mg/dL (7-18); CO2 26.6 mmol/L (21.0-32.0); Calcium 8.8 mg/dL (8.5-10.1); Calculated LDL 82 mg/dL (<100); Chloride 109 mmol/L (98-107); Cholesterol 157 mg/dL (<200); Estimated GFR 61.36 (mL/min/1.73m2); Glucose 113 mg/dL (74-106); HDL Cholesterol 52 mg/dL (40-60); Potassium 3.7 mmol/L (3.5-5.1); Sodium 142 mmol/L (136-145); Triglyceride 118 mg/dL (<150)
== END 2023-01-29 01:21 | disposition home or self-care (01) ==
LOC: LBO 01:20
PROVIDERS: PCP Nurse Practitioner Adult Health; Visit Provider Nurse Practitioner Adult Health
DX: E78.5 Hyperlipidemia, unspecified (principal); I10 Essential (primary) hypertension; E11.9 Type 2 diabetes mellitus without complications; K21.9 Gastro-esophageal reflux disease without esophagitis; N18.9 Chronic kidney disease, unspecified; G43.909 Migraine, unspecified, not intractable, without status migrainosus
CPT/HCPCS: 36415; 80048; 80061; 82043; 82570; 83036

== ENCOUNTER 2023-05-17 11:52 | Emergency (ER) | payer MEDICARE, SELFPAY ==
[2023-05-17 11:56] VITALS: BP 131/77; PULSE 67; RESP 18; TEMP 36.9; O2SAT 99
--- NOTE | 2023-05-17 12:00 | RT.EKG_ITS ---
APPROVED REPORT Exam: Resting ECG Reason for Exam: Dizzyness Patient Location: E HR:58 bpm ECG Measurements Heart Rate 58 AXIS WV 170 P 56 QRSd 84 QRS 1 QT 414 T 37 QTc 408 Conclusion Sinus bradycardia...rate< 60 Anteroseptal infarct, age indeterminate...Q >35mS, T neg, V1-V2
--- NOTE | 2023-05-17 13:19 | W.ED.GENAD ---
Discharge Plan Disposition Patient Disposition: Home Condition: Improving Discharge Details Clinical Impression: Vertigo Primary Care Provider: Tiffany Greenfield ED Provider: Anita Landis Home Meds and New Rx's Prescriptions: New meclizine 25 mg tablet 25 mg PO TID PRN (Reason: dizziness) Qty: 7 0RF Continued (DME) blood sugar diagnostic Strip See Rx Instructions .ROUTE .MEDSUPPLY Qty: 100 3RF Rx Instructions: PROVIDE PER INSURANCE COVERAGE. QD TESTING. e11.9 no insulin (DME) lancets Misc See Rx Instructions .ROUTE .MEDSUPPLY Qty: 100 3RF Rx Instructions: Provide per insurance coverage. QD testing. E11.9 estradiol [Vagifem] 10 mcg tablet 10 mcg vaginal .Twice weekly 360 Days Qty: 30 3RF atorvastatin 40 mg tablet 40 mg PO DAILY Qty: 90 3RF clonazepam 0.5 mg tablet 0.25 mg PO BID PRN (Reason: anxiety) Qty: 28 5RF nitroglycerin [Nitrostat] 0.4 mg tablet, sublingual 0.4 mg Sublingual Q5 MIN PRN X3 PRN (Reason: chest pain) Qty: 30 0RF Patient Comments: 12/25/15 Pt states she has not required any since 10/23/15. PG celecoxib [Celebrex] 100 mg capsule 100 mg PO DAILY PRN (Reason: pain) Qty: 90 0RF Rx Instructions: Back pain (do not mix with other NSAIDs) cholestyramine (with sugar) 4 gram powder 1 pwd PO DAILY Qty: 348.6 0RF Rx Instructions: administer w/meal; avoid other meds within 1hr before or 4-6hr after dose dihydroergotamine [Migranal] 1 ML spray,non-aerosol 0.5 mg NS ONCE Rx Instructions: Dr. Buck cyanocobalamin (vitamin B-12) [Vitamin B-12] 250 MCG tablet 250 mcg PO DAILY Rx Instructions: Dr. Buck, Stopped 3 wks ago due to high Vit B 12 level cgc 05/27/13 cholecalciferol (vitamin D3) [Vitamin D3] 400 UNIT capsule 1,000 unit PO DAILY calcium carbonate [Tums Ultra] 400 MG tablet,chewable 2 tab PO BID Qty: 1 Patient Comments: 12/25/15 Pt states 1 tab BID. PG (DME) blood-glucose meter Misc See Rx Instructions .ROUTE .MEDSUPPLY Qty: 1 0RF Rx Instructions: REPLACE LOST METER. PROVIDE PER INSURANCE COVERAGE. QD TESTING E11.9 esomeprazole magnesium [Nexium] 40 mg capsule,delayed release(DR/EC) 40 mg PO DAILY Qty: 90 6RF hydroxyzine HCl 25 mg tablet 25 mg PO BID PRN Rx Instructions: [facility] [place]/23/22 atenolol 25 mg tablet 25 mg PO DAILY Qty: 90 3RF Rx Instructions: for blood pressure lisinopril 2.5 mg tablet 2.5 mg PO DAILY Qty: 90 3RF Rx Instructions: to prevent diabetes injury to the kidneys gabapentin 100 mg capsule 200 mg PO QHS Qty: 180 3RF topiramate [Topamax] 200 mg tablet 100 mg PO BID Patient Comments: 05/17/19 taking 100mg in am and 200mg at night per Dr Buck 10/12/19 taking 100mg bid per Dr Arthur Rx Instructions: Dr. Buck promethazine [Promethegan] 25 MG suppository 25 mg RC PRN PRN Rx Instructions: Dr. Buck Discharge Instructions Instructions: Vertigo (ED) Additional Instructions: Your history is most concerning for recurrent vertigo. We did well with meclizine given to you here and this did seem to subside your symptoms. Please continue to encourage hydration. Please use the meclizine as prescribed if you have any recurrent symptoms. This has been sent to your pharmacy. Please follow-up with your primary care in 1 week for reevaluation. If you develop any fevers/chills, increased pain or worsening symptoms please seek care urgently once again. Referrals: Tiffany Greenfield NP [Primary Care Provider] - Discharge Data Discharge Date/Time-TO BE ENTERED AT DEPARTURE: 05/17/23 16:27 Medical Decision Making Patient is a pleasant 68-year-old female with past medical history significant for dissociative disorder, long-term benzodiazepine use, fecal incontinence, coronary atherosclerosis, hypertension, hyperlipidemia, anxiety, IBS, type 2 diabetes, CKD, GERD, agoraphobia, vertigo presenting today with chief complaint of vertigo. She reports this began at 5:00 this morning when she rolled over to cuddle with her . States that she immediately had a sudden onset of feeling of moving it that was worsened when she opened her eyes and began feeling the room spinning. Symptoms been intermittent since then, exacerbated with head movements. States that she is also had a atypical headache for her at the crown of her head. No loss of conscious. Denies any visual change, fevers or chills. Has not noted any focal weakness. Has had some nausea but no daren vomiting. Nausea associated with vertigo. This is not the worst headache of her life nor was there a thunderclap onset. She does have a history of migraines and states that her typical migraine regiment was unsuccessful at alleviating her discomfort. On exam, patient appears nontoxic. She is trying to hold her head fairly still and move slowly, she is not actively vertiginous. Neuro exam is intact. No vertigo was appreciable at this time but again, patient is now asymptomatic. No meningismus. No evidence of head trauma. Lungs are clear, normal cardiac exam. While her dizziness certainly sounds like vertigo and she has had the same in the past, I am more concerned about this atypical headache that began this morning. She does have a history of headaches but these are typically located on along the left side and quite reproducible per patient. Feel that imaging would be appropriate at this time for further evaluation of a headache. I do not see evidence of infectious etiology. Will give Antivert to help with symptoms. Labs reviewed. CBC still pending but CMP is without significant abnormality. TSH within normal limits. Urinalysis concerning for small amount of blood which has been present for the patient for quite some time, will encourage follow-up with her primary care in the event she has not yet had this evaluated. Consulted with radiologist who advised no acute change in the patient's CT of her brain. Discussed with patient, she reports she is feeling signficantly improved with the Antivert, will ambulate to ensure symptoms stay at bay. Her PHILLIPS has also resolved. Patient ambulated with nursing staff, feel signficantly improved and ready for d/c to home. We discussed continued care for her vertigo. Encourage dhydration and supportive care. Advised that she may continue with her typical medications. Will also prescribe antivert in event symptoms return. We discussed return precautions. Advised close f/u with PCP. All of her questions and concerns were addressed, she is treva greement with chrystal victoria. HPI General Date/Time Provider Initiated Documentation: 05/17/23 12:02. Limitations to Documentation: no limitations. Information obtained by: patient, family, RN notes reviewed and old records reviewed. History of Present Illness 68 year old F presents to the emergency department with the chief complaint of vertigo, described as severe and similar to prior episodes, and is localized to the head. Patient reports no radiation. Patient started experiencing this hour(s) and it has been now resolved. Rest improves symptom(s), Movement worsens symptoms (began when she rolled in bed) . Patient notes headaches; denies confusion, chest pain, cough, diaphoresis, fever/chills, rash, seizure, shortness of breath, syncope and weakness. Patient did receive the following treatments prior to arrival, none Related Data Home Medications Medication Instructions Recorded Confirmed cyanocobalamin (vitamin B-12) 250 250 mcg PO DAILY 01/04/13 05/19/23 mcg tablet (Vitamin B-12) dihydroergotamine 0.5 mg/pump act. 0.5 mg NS ONCE 01/04/13 05/19/23 (4 mg/mL) nasal spray (Migranal) promethazine 25 mg rectal 25 mg RC PRN PRN 05/05/13 05/19/23 suppository (Promethegan) cholecalciferol (vitamin D3) 10 1,000 unit PO DAILY 10/23/13 05/19/23 mcg (400 unit) capsule (Vitamin D3) calcium carbonate 400 mg calcium 2 tab PO BID ##1 11/30/14 05/19/23 (1,000 mg) chewable tablet (Tums Ultra) nitroglycerin 0.4 mg sublingual 0.4 mg sublingual Q5 MIN PRN X3 06/27/19 05/19/23 tablet (Nitrostat) PRN chest pain #30 tabs topiramate 200 mg tablet (Topamax) 100 mg PO BID 12/26/19 05/19/23 blood sugar diagnostic #100 ea 05/01/20 05/19/23 lancets #100 ea 05/01/20 05/19/23 blood-glucose meter #1 ea 08/14/21 05/19/23 estradiol 10 mcg vaginal tablet 10 mcg vaginal .Twice weekly 12 03/11/22 05/19/23 (Vagifem) months #30 tabs esomeprazole magnesium 40 mg 40 mg PO DAILY #90 caps 06/15/22 05/19/23 capsule,delayed release (Nexium) hydroxyzine HCl 25 mg tablet 25 mg PO BID PRN 11/26/22 05/19/23 atenolol 25 mg tablet 25 mg PO DAILY #90 tab-caps 12/07/22 05/19/23 lisinopril 2.5 mg tablet 2.5 mg PO DAILY #90 tabs 12/07/22 05/19/23 celecoxib 100 mg capsule (Celebrex) 100 mg PO DAILY PRN pain #90 caps 02/15/23 05/19/23 gabapentin 100 mg capsule 200 mg PO QHS shoulder pain #180 03/17/23 05/19/23 caps atorvastatin 40 mg tablet 40 mg PO DAILY #90 tab-caps 04/15/23 05/19/23 clonazepam 0.5 mg tablet 0.25 mg PO BID PRN anxiety #28 tabs 04/15/23 05/19/23 cholestyramine (with sugar) 4 gram 1 pwd PO DAILY #348.6 grams 05/11/23 05/19/23 oral powder meclizine 25 mg tablet 25 mg PO TID PRN dizziness #7 tabs 05/17/23 05/19/23 Previous Rx's Medication Instructions Recorded nitroglycerin 0.4 mg sublingual 0.4 mg sublingual Q5 MIN PRN X3 06/27/19 tablet (Nitrostat) PRN chest pain #30 tabs blood sugar diagnostic #100 ea 05/01/20 lancets #100 ea 05/01/20 blood-glucose meter #1 ea 08/14/21 estradiol 10 mcg vaginal tablet 10 mcg vaginal .Twice weekly 12 03/11/22 (Vagifem) months #30 tabs esomeprazole magnesium 40 mg 40 mg PO DAILY #90 caps 06/15/22 capsule,delayed release (Nexium) atenolol 25 mg tablet 25 mg PO DAILY #90 tab-caps 12/07/22 lisinopril 2.5 mg tablet 2.5 mg PO DAILY #90 tabs 12/07/22 celecoxib 100 mg capsule (Celebrex) 100 mg PO DAILY PRN pain #90 caps 02/15/23 gabapentin 100 mg capsule 200 mg PO QHS shoulder pain #180 03/17/23 caps atorvastatin 40 mg tablet 40 mg PO DAILY #90 tab-caps 04/15/23 clonazepam 0.5 mg tablet 0.25 mg PO BID PRN anxiety #28 tabs 04/15/23 cholestyramine (with sugar) 4 gram 1 pwd PO DAILY #348.6 grams 05/11/23 oral powder meclizine 25 mg tablet 25 mg PO TID PRN dizziness #7 tabs 05/17/23 Allergies Allergy/AdvReac Type Severity Reaction Status Date / Time epinephrine Allergy Severe Verified 05/19/23 15:05 morphine Allergy Skin Rash Verified 05/19/23 15:05 Penicillins Allergy Skin Rash Verified 05/19/23 15:05 venom-honey bee Allergy Psychosis Verified 05/19/23 15:05 amitriptyline AdvReac super Verified 05/19/23 15:05 anxious oxycodone AdvReac nausea and Verified 05/19/23 15:05 vomiting pentazocine lactate AdvReac Visual Verified 05/19/23 15:05 [From Alyce] Disturbances sumatriptan AdvReac Cardiac Verified 05/19/23 15:05 Dysrythmia General Stated Complaint: Dizzy/Sync REID: [id number] Review of Systems Constitutional Constitutional: Reports as per HPI, Denies chills, Denies fever(s), Denies frequent falls, Reports headache(s) and Denies weakness Eyes Eyes: Reports as per HPI, Denies blurry vision and Denies change in vision ENT Ears, Nose, Mouth, and Throat: Reports headache(s) and Denies neck pain Cardiovascular Cardiovascular: Reports as per HPI, Denies chest pain, Denies lightheadedness and Denies dyspnea Respiratory Respiratory: Reports as per HPI, Denies chest congestion, Denies cough and Denies dyspnea Gastrointestinal Gastrointestinal: Reports as per HPI, Denies abdominal pain, Denies change in bowel habits, Denies nausea and Denies vomiting Musculoskeletal Musculoskeletal: Reports as per HPI, Denies back pain, Denies myalgias, Denies muscle cramps, Denies neck pain and Denies numbness Integumentary/Breasts Skin/Breast: Reports as per HPI and Denies rash Neurologic Neurologic: Reports as per HPI, Denies abnormal movements, Denies abnormal speech, Denies behavioral changes, Denies confusion, Denies frequent falls, Reports headache(s), Denies localized weakness, Denies numbness, Denies sensory deficit and Denies weakness Psychiatric Psychiatric: Denies behavioral changes and Denies confusion PFSH All Active Problems Vertigo (Acute) History of dissociative disorder (Acute ~03/2023) 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 Wells) Upper back pain, chronic (Acute) Pain in right toe(s) (Acute) ?Podiatry vs. 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 Reportedly getting weakness in her arms and legs since the cardiac cath and has noted slightly more swelling in the left leg when active. Benign hypertension (Chronic) Hyperlipidemia (Chronic) Migraine (Chronic) Shoulder pain (Active ~2011) Left shoulder strain, May 2012, when she was hit by her dog. Currently in Physical Therapy. Thoracic radiculopathy (Active) Presumed nerve entrapment from cholecystectomy. 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 Normal MRI, MRA. Video EEG monitoring and withdrawl of Topamax Klonopin did not produce any epileptic abnormalities or any of her typical spells. EEG remained normal. ( 07/11/12) Irritable bowel (Chronic) Type 2 diabetes mellitus without complication (Acute) Atypical chest pain (Chronic) Chronic kidney disease (CKD) (Chronic) GERD (gastroesophageal reflux disease) (Chronic) Postcholecystectomy diarrhea (Acute) SBO (small bowel obstruction) (Acute) Fecal soiling due to fecal incontinence (Acute) Medical History Agoraphobia Atypical angina pt. states she doesn't have an issues with this. 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 Rosenbaum. 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 NOT osteoporosis since osteoporosis not defined by wrist density. Rheumatology -2013 Surgical History Abdominal hysterectomy Appendectomy Cholecystectomy History of colonoscopy (~03/03/22) Poor prep, repeat 5 yrs, Stoiber Oophrectomy, Both Status post percutaneous transluminal coronary angioplasty (01/06/13) S/P stent of completely occluded mid-LAD Trigger point of left shoulder region parascapular Family History Mother Essential hypertension Cancer Breast cancer then Ovarian cancer. Ovarian cancer surgery revealed ovarian cancer wrapped around the colon. Nothing done, 2 wks later Breast cancer Ovarian cancer Father Essential hypertension Lewy body dementia Diabetes insipidus Hyperlipidemia Sister Essential hypertension Alcohol abuse complicated by CKD requiring dialysis; refused dialysis so of CKD Brother Essential hypertension Alcohol abuse Cirrhosis; of heart attack Heart disease Brother Prostate cancer metastatic to lungs; resected; recurred; suicide Alcohol abuse Depression suicide Social History Smoking/Tobacco Use Status: Never Smoking risk assessment performed?: Yes Alcohol Intake: never Drug use: Occasionally Substance use type: marijuana Details: last used 03/02/22 Household members: spouse Housing: house Communication Needs: None Current gender identity: female What is your relationship status?: Panel score (0-1 are the most socially isolated patients): 1 What type of physical activity do you participate in: none Seatbelt use: always Drive intox or ride w/intox city route driver: No Working smoke detector in home: Yes Carbon monox detector in home: Yes Do you feel safe at home: Yes Do you feel safe in your relationship?: Yes Exam Const General: cooperative, healthy appearing, comfortable (not moving her head [id number], feels this will bring it on), no acute distress, well developed and well groomed Nutritional Appearance: average body habitus and well nourished Orientation: alert, awake and oriented x3 HENMT Head: normal to inspection, no palpable skull fracture, normocephalic and atraumatic Ears: hearing grossly normal bilaterally, external ears normal and TM's normal bilaterally General nose exam: external nose normal Mouth: oral mucosae normal and moist mucous membranes Throat: posterior oropharynx normal Eyes General: appearance normal, both eyes and all related structures Alignment and Position: alignment normal Periorbital: periorbital findings normal Eyelids: eyelids normal Sclera: sclerae normal Cornea: corneas normal Pupils: PERRL EOM: EOM intact bilaterally and No nystagmus Neck Neck: normal visual inspection, full ROM, no lymphadenopathy and no meningeal signs Resp Effort & Inspection: normal respiratory effort, able to speak in complete sentences and no respiratory distress Auscultation: clear to auscultation bilaterally, no rales, no rhonchi and no wheezes Cardio Rate: regular rate Rhythm: regular rhythm Heart Sounds: S1 normal and S2 normal Back/Spine/Pelvis Cervical Spine: normal cervical lordosis and cervical ROM normal Skin General skin exam: no rashes or lesions noted Neuro General: patient alert, patient awake and patient oriented x3 Cranial Nerves: CN's II-XI intact bilaterally and no nystagmus Cognition: normal cognition Speech: speech normal Gait: normal gait Motor: muscle tone normal throughout, strength 5/5 throughout, no pronator drift, no movement abnormalities noted and no fasciculations Sensory Exam: no sensory deficits noted Coordination: [id number] test normal and [id number] test normal Extrem General: normal to inspection, capillary refill normal, no pedal edema and no calf tenderness Course Vital Signs Vital signs: Vital Signs Temperature 36.9 C 05/17/23 11:56 Pulse 67 05/17/23 11:56 Respiratory Rate 18 05/17/23 11:56 Blood Pressure 131/77 05/17/23 11:56 Pulse Oximetry 99 05/17/23 11:56 Temperature 36.9 C 05/17/23 11:56 Temperature Source Skin 05/17/23 11:56 Pulse 67 05/17/23 11:56 Respiratory Rate 18 05/17/23 11:56 Blood Pressure 131/77 05/17/23 11:56 Blood Pressure Position Sitting 05/17/23 11:56 Pulse Oximetry 99 05/17/23 11:56 Oxygen Delivery Method Room Air 05/17/23 11:56 Oxygen Flow Rate 0 05/17/23 11:56 Pain Level 5 05/17/23 11:56
--- NOTE | 2023-05-17 13:30 | DI.CT_ITS ---
Exam(s) CT HEAD WO EXAM: CT HEAD WO CLINICAL HISTORY: PHILLIPS, vertigo. TECHNIQUE: Imaging Protocol: Axial computed tomography images with coronal and sagittal reformatted images were created and reviewed COMPARISON: CT CT HEAD WO from 10/11/2019 FINDINGS: There are no skull fractures. There similar appearing lucent lesions on both sides of the upper skull -calvarium but most probably benign as these are unchanged from September 2019 and there are no new ad ditional skull lesions. Visualized paranasal sinuses are clear as are the mastoid air cells. There is no evidence of intracranial hemorrhage, mass effect, or shift of midline structures. There are no extra-axial fluid collections. The ventricles are not enlarged or shifted and there is no blo od within the ventricular system nor within the basal cisterns. IMPRESSION: No acute intracranial findings on this noninfused CT scan of the brain. No significant change compar ed 10/11/2019. RADIATION DOSE DELIVERED: 721.07mGy.cm Total DLP DATA REPOSITORY: All CT scans at this facility are submitted to the National Radiology Data Registry (NRDR) Dose Index Registry (DIR) with the [employer] ([employer]). RADIATION OPTIMIZATION: All CT scans at this facility use at least one of these dose optimization te chniques: automated exposure control; mA and/or kV adjustment per patient size (includes targeted exa ms where dose is matched to clinical indication); or iterative reconstruction.
[2023-05-17] MEDS: Meclizine 25 MG TAB PO (13:52)
[2023-05-17] MEDS: Normal Saline 1,000 ML 500 ML IV (13:52)
[2023-05-17 14:10] VITALS: RESP 15
[2023-05-17 14:35] LABS: ALT 14 U/L (14-59); AST 11 U/L (15-37); Albumin 3.7 g/dL (3.4-5.0); Alkaline Phosphatase 71 U/L (46-116); Anion Gap 8.6 mmol/L (3-11); BUN 20 mg/dL (7-18); Bilirubin, Total 0.3 mg/dL (0.2-1.0); CO2 25.4 mmol/L (21.0-32.0); CREATININE 0.9 mg/dL (0.55-1.02); Calcium 9.2 mg/dL (8.5-10.1); Chloride 107 mmol/L (98-107); Glucose 97 mg/dL (74-106); Magnesium 2.2 mg/dL (1.8-2.4); Potassium 3.7 mmol/L (3.5-5.1); Sodium 141 mmol/L (136-145); TSH 2.03 uIU/mL (0.36-3.74); Total Protein 7.3 g/dL (6.4-8.2)
[2023-05-17 14:41] LABS: Bilirubin Negative (Negative); Blood Small (Negative); Clarity Clear (Clear); Glucose Negative (Negative); Ketones Negative (Negative); Leukocyte Esterase Negative (Negative); Nitrite Negative (Negative); Urobilinogen 0.2 mg/dL (Up to 0.2); pH 6.5 (5-8)
[2023-05-17 14:50] LABS: Bacteria Negative HPF (Negative); C & S Indicated? No; Casts Negative LPF (Negative); Crystals Negative HPF (Negative); Epithelial Cells Negative HPF (Negative); Mucus Negative (Negative); Other Cells Negative (Negative); RBC Negative HPF (0-2); WBC Negative HPF (0-5)
[2023-05-17 15:29] LABS: Abs Immature Grans 0.01 10^3/uL (0.0-0.06); Absolute Basophil Count 0.03 10^3/uL (0.0-0.2); Absolute Eosinophil Count 0.11 10^3/uL (0.0-0.7); Absolute Lymphocyte Count 1.79 10^3/uL (1.2-3.4); Absolute Monocyte Count 0.69 10^3/uL (0.1-0.8); Absolute Neutrophil Count 4.23 10^3/uL (1.2-6.7); Basophils % 0.4; Eosinophils % 1.6; HCT 39.1 % (36.0-46.0); HGB 13.1 g/dL (11.2-15.7); Immature Grans % 0.1; Lymphocytes % 26.1; MCH 32.6 pg (27.0-33.0); MCHC 33.5 % (32.0-36.0); MCV 97 fL (80-95); MPV 9.4 fL (8.0-11.0); Monocytes % 10.1; Neutrophils % 61.7; Platelet Count 145 10^3/uL (130-400); RBC 4.02 10^6/uL (3.93-5.22); RDW 12.1 % (11.7-14.6); RDW-SD 43.9 fL; WBC 6.86 10^3/uL (4.4-10.8)
== END 2023-05-17 16:27 | disposition home or self-care (01) ==
PROVIDERS: Emergency Provider Physician Assistant; PCP Nurse Practitioner Adult Health
DX: R42 Dizziness and giddiness (principal); R11.2 Nausea with vomiting, unspecified; R51.9 Headache, unspecified; R00.1 Bradycardia, unspecified; I12.9 Hypertensive chronic kidney disease with stage 1 through stage 4 chronic kidney disease, or unspecified chronic kidney disease; E11.22 Type 2 diabetes mellitus with diabetic chronic kidney disease; N18.9 Chronic kidney disease, unspecified; I25.10 Atherosclerotic heart disease of native coronary artery without angina pectoris; Z95.5 Presence of coronary angioplasty implant and graft; Z79.84 Long term (current) use of oral hypoglycemic drugs
CPT/HCPCS: 36415; 80053; 82962; 93005; 96360; 96361; 99284; 70450; 81003; 81015; 83735; 84443; 85025; 93010

== ENCOUNTER 2023-06-07 10:51 | Emergency (ER) | payer MEDICARE, SELFPAY ==
[2023-06-07 11:01] VITALS: BP 141/51; PULSE 67; RESP 20; TEMP 36.8; O2SAT 99
--- NOTE | 2023-06-07 11:02 | ED.GENADUL_ITS ---
Discharge Plan Disposition Patient Disposition: Home Discharge Details Clinical Impression: Local reaction to hymenoptera sting Primary Care Provider: Tiffany Greenfield ED Provider: Zhen Chang Home Meds and New Rx's Prescriptions: Continued (DME) blood sugar diagnostic Strip See Rx Instructions .ROUTE .MEDSUPPLY Qty: 100 3RF Rx Instructions: PROVIDE PER INSURANCE COVERAGE. QD TESTING. e11.9 no insulin (DME) lancets Misc See Rx Instructions .ROUTE .MEDSUPPLY Qty: 100 3RF Rx Instructions: Provide per insurance coverage. QD testing. E11.9 estradiol [Vagifem] 10 mcg tablet 10 mcg vaginal .Twice weekly 360 Days Qty: 30 3RF atorvastatin 40 mg tablet 40 mg PO DAILY Qty: 90 3RF clonazepam 0.5 mg tablet 0.25 mg PO BID PRN (Reason: anxiety) Qty: 28 5RF nitroglycerin [Nitrostat] 0.4 mg tablet, sublingual 0.4 mg Sublingual Q5 MIN PRN X3 PRN (Reason: chest pain) Qty: 30 0RF Patient Comments: 12/25/15 Pt states she has not required any since 10/23/15. PG celecoxib [Celebrex] 100 mg capsule 100 mg PO DAILY PRN (Reason: pain) Qty: 90 0RF Rx Instructions: Back pain (do not mix with other NSAIDs) cholestyramine (with sugar) 4 gram powder 1 pwd PO DAILY Qty: 348.6 0RF Rx Instructions: administer w/meal; avoid other meds within 1hr before or 4-6hr after dose dihydroergotamine [Migranal] 1 ML spray,non-aerosol 0.5 mg NS ONCE Rx Instructions: Dr. Buck cyanocobalamin (vitamin B-12) [Vitamin B-12] 250 MCG tablet 250 mcg PO DAILY Rx Instructions: Dr. Buck, Stopped 3 wks ago due to high Vit B 12 level cgc 05/27/13 cholecalciferol (vitamin D3) [Vitamin D3] 400 UNIT capsule 1,000 unit PO DAILY calcium carbonate [Tums Ultra] 400 MG tablet,chewable 2 tab PO BID Qty: 1 Patient Comments: 12/25/15 Pt states 1 tab BID. PG (DME) blood-glucose meter Misc See Rx Instructions .ROUTE .MEDSUPPLY Qty: 1 0RF Rx Instructions: REPLACE LOST METER. PROVIDE PER INSURANCE COVERAGE. QD TESTING E11.9 esomeprazole magnesium [Nexium] 40 mg capsule,delayed release(DR/EC) 40 mg PO DAILY Qty: 90 6RF hydroxyzine HCl 25 mg tablet 25 mg PO BID PRN Rx Instructions: [facility] Neuro note 11/23/22 atenolol 25 mg tablet 25 mg PO DAILY Qty: 90 3RF Rx Instructions: for blood pressure lisinopril 2.5 mg tablet 2.5 mg PO DAILY Qty: 90 3RF Rx Instructions: to prevent diabetes injury to the kidneys gabapentin 100 mg capsule 200 mg PO QHS Qty: 180 3RF topiramate [Topamax] 200 mg tablet 100 mg PO BID Patient Comments: 05/17/19 taking 100mg in am and 200mg at night per Dr Buck 10/12/19 taking 100mg bid per Dr Arthur Rx Instructions: Dr. Buck promethazine [Promethegan] 25 MG suppository 25 mg RC PRN PRN Rx Instructions: Dr. Buck meclizine 25 mg tablet 25 mg PO TID PRN (Reason: dizziness) Qty: 7 0RF Discharge Instructions Additional Instructions: Please read all of the information that accompanies these instructions. You were seen in the emergency department for your bee sting. As we discussed you may take Benadryl if your bee sting itches. Please schedule an appointment with your primary care provider later this week. Please return to the emergency department if develop shortness of breath nausea or vomiting. For your pain please take medications as follows: 1. Take acetaminophen (Tylenol), 1,000 mg (two 500 mg tabs) every 6 hours Discharge Data Discharge Date/Time-TO BE ENTERED AT DEPARTURE: 06/07/23 11:33 Medical Decision Making This is an overall very well-appearing normothermic and not tachycardic nor hypotensive nor hypoxic 68-year-old female with right dominant arm hymenoptera sting and local reaction. No shortness of breath nor stridor to suggest anaphylaxis so no indication for epinephrine. Patient was nauseous and was vomiting prehospital which is concerning for the possibility of anaphylaxis but is having no cutaneous manifestations and given her lack of systemic symptoms at the moment I feel that the risks of epinephrine outweigh the benefits. Similarly given overall well appearance no indication for steroids. No pain out of proportion to suggest necrotizing soft tissue infection. No fluctuance to suggest abscess. No significant erythema to suggest cellulitis. Right hand warm and well-perfused with no concern for vascular injury. I have advised patient to take diphenhydramine as needed for itching. I treated her discomfort with acetaminophen in the emergency department. No underlying bony tenderness nor any significant trauma so do not feel that the patient requires plain films. I have advised outpatient PCP follow-up as needed. I also advised strict ED return for any shortness of breath recurrent nausea vomiting chest pain and shortness of breath. Will proceed with an empiric trial of expectant outpatient management. HPI General Date/Time Provider Initiated Documentation: 06/07/23 11:02 . HPI Narrative: This is a [id number] 68-year-old female arrived to the emergency department in the setting of right arm pain status post bee sting earlier today. Patient was reportedly out gardening. She reportedly has an allergy to bee stings. She reportedly has received epinephrine in the past. She did not give herself epinephrine this morning. She was transiently nauseous and vomited. She has had no abdominal discomfort nor any recurrent nausea or vomiting. She denies any chest pain shortness of breath nausea and vomiting. She says that her right arm is sore. She occasionally uses marijuana but denies routine tobacco and ethanol. No falls. No trauma to the arm. She has not noticed any rashes. She reports feeling drunk. Related Data Home Medications Medication Instructions Recorded Confirmed cyanocobalamin (vitamin B-12) 250 250 mcg PO DAILY 01/04/13 05/19/23 mcg tablet (Vitamin B-12) dihydroergotamine 0.5 mg/pump act. 0.5 mg NS ONCE 01/04/13 05/19/23 (4 mg/mL) nasal spray (Migranal) promethazine 25 mg rectal 25 mg RC PRN PRN 05/05/13 05/19/23 suppository (Promethegan) cholecalciferol (vitamin D3) 10 1,000 unit PO DAILY 10/23/13 05/19/23 mcg (400 unit) capsule (Vitamin D3) calcium carbonate 400 mg calcium 2 tab PO BID ##1 11/30/14 05/19/23 (1,000 mg) chewable tablet (Tums Ultra) nitroglycerin 0.4 mg sublingual 0.4 mg sublingual Q5 MIN PRN X3 06/27/19 05/19/23 tablet (Nitrostat) PRN chest pain #30 tabs topiramate 200 mg tablet (Topamax) 100 mg PO BID 12/26/19 05/19/23 blood sugar diagnostic #100 ea 05/01/20 05/19/23 lancets #100 ea 05/01/20 05/19/23 blood-glucose meter #1 ea 08/14/21 05/19/23 estradiol 10 mcg vaginal tablet 10 mcg vaginal .Twice weekly 12 03/11/22 05/19/23 (Vagifem) months #30 tabs esomeprazole magnesium 40 mg 40 mg PO DAILY #90 caps 06/15/22 05/19/23 capsule,delayed release (Nexium) hydroxyzine HCl 25 mg tablet 25 mg PO BID PRN 11/26/22 05/19/23 atenolol 25 mg tablet 25 mg PO DAILY #90 tab-caps 12/07/22 05/19/23 lisinopril 2.5 mg tablet 2.5 mg PO DAILY #90 tabs 12/07/22 05/19/23 celecoxib 100 mg capsule (Celebrex) 100 mg PO DAILY PRN pain #90 caps 02/15/23 05/19/23 gabapentin 100 mg capsule 200 mg PO QHS shoulder pain #180 03/17/23 05/19/23 caps atorvastatin 40 mg tablet 40 mg PO DAILY #90 tab-caps 04/15/23 05/19/23 clonazepam 0.5 mg tablet 0.25 mg PO BID PRN anxiety #28 tabs 04/15/23 05/19/23 cholestyramine (with sugar) 4 gram 1 pwd PO DAILY #348.6 grams 05/11/23 05/19/23 oral powder meclizine 25 mg tablet 25 mg PO TID PRN dizziness #7 tabs 05/17/23 05/19/23 Previous Rx's Medication Instructions Recorded nitroglycerin 0.4 mg sublingual 0.4 mg sublingual Q5 MIN PRN X3 06/27/19 tablet (Nitrostat) PRN chest pain #30 tabs blood sugar diagnostic #100 ea 05/01/20 lancets #100 ea 05/01/20 blood-glucose meter #1 ea 08/14/21 estradiol 10 mcg vaginal tablet 10 mcg vaginal .Twice weekly 12 03/11/22 (Vagifem) months #30 tabs esomeprazole magnesium 40 mg 40 mg PO DAILY #90 caps 06/15/22 capsule,delayed release (Nexium) atenolol 25 mg tablet 25 mg PO DAILY #90 tab-caps 12/07/22 lisinopril 2.5 mg tablet 2.5 mg PO DAILY #90 tabs 12/07/22 celecoxib 100 mg capsule (Celebrex) 100 mg PO DAILY PRN pain #90 caps 02/15/23 gabapentin 100 mg capsule 200 mg PO QHS shoulder pain #180 03/17/23 caps atorvastatin 40 mg tablet 40 mg PO DAILY #90 tab-caps 04/15/23 clonazepam 0.5 mg tablet 0.25 mg PO BID PRN anxiety #28 tabs 04/15/23 cholestyramine (with sugar) 4 gram 1 pwd PO DAILY #348.6 grams 05/11/23 oral powder meclizine 25 mg tablet 25 mg PO TID PRN dizziness #7 tabs 05/17/23 Allergies Allergy/AdvReac Type Severity Reaction Status Date / Time epinephrine Allergy Severe Verified 06/07/23 11:09 morphine Allergy Skin Rash Verified 06/07/23 11:09 Penicillins Allergy Skin Rash Verified 06/07/23 11:09 venom-honey bee Allergy Psychosis Verified 06/07/23 11:09 amitriptyline AdvReac super Verified 06/07/23 11:09 anxious oxycodone AdvReac nausea and Verified 06/07/23 11:09 vomiting pentazocine lactate AdvReac Visual Verified 06/07/23 11:09 [From Alyce] Disturbances sumatriptan AdvReac Cardiac Verified 06/07/23 11:09 Dysrythmia General REID: 3 PFSH All Active Problems (Updated 06/07/23 @ 11:14 by Zhen Chang MD) Local reaction to hymenoptera sting (Acute) Vertigo (Acute) History of dissociative disorder (Acute ~03/2023) residential prescription benzodiazepine use (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 Wells) Upper back pain, chronic (Acute) Pain in right toe(s) (Acute) ?Podiatry vs. PT for orthopedics Vaginal atrophy (Acute) [employer]GER; local estrogens Fecal incontinence (Acute) Urinary incontinence concurrent with and due to female genital prolapse (Acute) History of bladder suspension procedure (Acute) Pelvic floor dysfunction in female (Acute) Coronary arteriosclerosis (Active) Recent stent placement at [facility] 01-06-2013. Reportedly getting weakness in her arms and legs since the cardiac cath and has noted slightly more swelling in the left leg when active. Benign hypertension (Chronic) Hyperlipidemia (Chronic) Migraine (Chronic) Shoulder pain (Active ~2011) Left shoulder strain, May 2012, when she was hit by her dog. Currently in Physical Therapy. Thoracic radiculopathy (Active) Presumed nerve entrapment from cholecystectomy. 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 Normal MRI, MRA. Video EEG monitoring and withdrawl of Topamax Klonopin did not produce any epileptic abnormalities or any of her typical spells. EEG remained normal. ( 07/11/12) Irritable bowel (Chronic) Type 2 diabetes mellitus without complication (Acute) Atypical chest pain (Chronic) Chronic kidney disease (CKD) (Chronic) GERD (gastroesophageal reflux disease) (Chronic) Postcholecystectomy diarrhea (Acute) SBO (small bowel obstruction) (Acute) Fecal soiling due to fecal incontinence (Acute) Medical History Agoraphobia Atypical angina pt. states she doesn't have an issues with this. F/U with a medical practitioners 1.5 years ago, Dr. Rosenbaum. 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 NOT osteoporosis since osteoporosis not defined by wrist density. Rheumatology -2013 Surgical History Abdominal hysterectomy Appendectomy Cholecystectomy History of colonoscopy (~03/03/22) Poor prep, repeat 5 yrs, Stoiber Oophrectomy, Both Status post percutaneous transluminal coronary angioplasty (01/06/13) S/P stent of completely occluded mid-LAD Trigger point of left shoulder region parascapular Family History Mother Essential hypertension Cancer Breast cancer then Ovarian cancer. Ovarian cancer surgery revealed ovarian cancer wrapped around the colon. Nothing done, 2 wks later Breast cancer Ovarian cancer Father Essential hypertension Lewy body dementia Diabetes insipidus Hyperlipidemia Sister Essential hypertension Alcohol abuse complicated by CKD requiring dialysis; refused dialysis so of CKD Brother Essential hypertension Alcohol abuse Cirrhosis; of heart attack Heart disease Brother Prostate cancer metastatic to lungs; resected; recurred; suicide Alcohol abuse Depression suicide Social History Smoking/Tobacco Use Status: Never Smoking risk assessment performed?: Yes Alcohol Intake: never Drug use: Occasionally Substance use type: marijuana Details: last used 03/02/22 Household members: spouse Housing: house Communication Needs: None Current gender identity: female What is your relationship status?: Panel score (0-1 are the most socially isolated patients): 1 What type of physical activity do you participate in: none Seatbelt use: always Drive intox or ride 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 Head: Normocephalic, atraumatic. Eye: Extraocular eye movements intact. No conjunctival injection. No scleral icterus. Ear, nose, mouth, throat: Grossly normal inspection. Normal voice, handling secretions normally. Uvula midline. No intraoral swelling. Neck: Trachea midline. Cardiovascular: Well-perfused distal extremities. Regular rate and rhythm Respiratory: Nonlabored respiration. Clear lungs. Gastrointestinal: Nondistended abdomen. Musculoskeletal: No edema. Moving all 4 extremities spontaneously. On the lateral aspect of the right distal humerus there is a small approximately 3 cm area of erythema. No fluctuance. Right upper extremity warm well perfused at the hand with 2+ right radial pulse. Skin: Normal for age and race, grossly normal temperature and turgor. No acute rash. Neurologic: Alert and appropriate, no apparent acute deficits. Psychiatric: Mood and manner are appropriate. Grooming and personal hygiene are appropriate.
[2023-06-07] MEDS: Acetaminophen 500 MG TAB 1000 MG PO (11:32)
== END 2023-06-07 11:33 | disposition home or self-care (01) ==
PROVIDERS: Emergency Provider Emergency Medicine; PCP Nurse Practitioner Adult Health
DX: T63.441A Toxic effect of venom of bees, accidental (unintentional), initial encounter (principal); R11.2 Nausea with vomiting, unspecified; Z91.030 Bee allergy status
CPT/HCPCS: 99282; 99283

== ENCOUNTER → 2023-10-26 00:53 | Outpatient (CLI) | payer MEDICARE, SELFPAY ==
--- NOTE | 2023-10-26 07:15 | DI.RAD_ITS ---
Exam(s) XR CHEST 2V PA LATERAL EXAM: XR CHEST 2V PA LATERAL CLINICAL HISTORY: Covid ,chest pain,U07.1,R07.9. TECHNIQUE: 2D digital imaging was performed. COMPARISON: CR XR CHEST 2V PA LATERAL from 11/05/2022 FINDINGS: 2 views: Heart size is normal. The mediastinum is not widened. There are increased markings in the lower most bilateral lung cesar behind the hemidiaphragms, these being the posterior basal segments of both lower lobes. No pleural effusions. No pneumothorax. IMPRESSION: Abnormal markings in the posterior basal segments of both lower lobes. Probably atelectasis but mary ot exclude mild infiltrates. There are no pleural effusions. DATA REPOSITORY: RADIATION DOSE DELIVERED:
== END ==
PROVIDERS: PCP Nurse Practitioner Adult Health; Visit Provider Emergency Medicine
DX: R53.83 Other fatigue (principal); U07.1 COVID-19
CPT/HCPCS: 71046

== ENCOUNTER 2023-10-26 03:30 | Outpatient (CLI) | payer MEDICARE, SELFPAY ==
[2023-10-26 09:19] LABS: Abs Immature Grans 0.02 10^3/uL (0.0-0.06); Absolute Basophil Count 0.05 10^3/uL (0.0-0.2); Absolute Eosinophil Count 0.19 10^3/uL (0.0-0.7); Absolute Lymphocyte Count 1.91 10^3/uL (1.2-3.4); Absolute Monocyte Count 0.87 10^3/uL (0.1-0.8); Absolute Neutrophil Count 4.62 10^3/uL (1.2-6.7); Basophils % 0.7; Eosinophils % 2.5; HCT 37.8 % (36.0-46.0); HGB 12.3 g/dL (11.2-15.7); Immature Grans % 0.3; Lymphocytes % 24.9; MCHC 32.5 % (32.0-36.0); MCV 98 fL (80-95); MPV 8.7 fL (8.0-11.0); Monocytes % 11.4; Neutrophils % 60.2; Platelet Count 234 10^3/uL (130-400); RBC 3.84 10^6/uL (3.93-5.22); RDW 11.9 % (11.7-14.6); RDW-SD 43.5 fL; WBC 7.66 10^3/uL (4.4-10.8)
[2023-10-26 09:33] LABS: Anion Gap 6.3 mmol/L (3-11); BUN 15 mg/dL (7-18); C-Reactive Protein 0.06 mg/dL (0.0-0.3); CO2 28.7 mmol/L (21.0-32.0); Calcium 9.2 mg/dL (8.5-10.1); Chloride 108 mmol/L (98-107); Estimated GFR 60.98 (mL/min/1.73m2); Glucose 120 mg/dL (74-106); Potassium 4.2 mmol/L (3.5-5.1); Sodium 143 mmol/L (136-145)
[2023-10-26 09:50] LABS: Folate 5.3 ng/mL (8.6-20.0)
[2023-10-26 10:01] LABS: Vitamin B12 459 pg/mL (193-986)
== END 2023-10-26 03:31 | disposition home or self-care (01) ==
LOC: LBO 03:30
PROVIDERS: Emergency Medicine; Student in an Organized Health Care Education/Training Program; PCP Nurse Practitioner Adult Health; Visit Provider Nurse Practitioner Adult Health
DX: R53.83 Other fatigue (principal); U07.1 COVID-19; I10 Essential (primary) hypertension; R41.3 Other amnesia; R41.89 Other symptoms and signs involving cognitive functions and awareness; Z81.8 Family history of other mental and behavioral disorders; Z86.59 Personal history of other mental and behavioral disorders; Z87.820 Personal history of traumatic brain injury
CPT/HCPCS: 36415; 80048; 82607; 82746; 85025; 86140

== ENCOUNTER → 2023-11-12 00:36 | Outpatient (CLI) | payer MEDICARE, SELFPAY ==
--- NOTE | 2023-11-12 07:00 | DI.MAMMO_ITS ---
Exam(s) MAMMO SCREENING EXAM: MAMMO SCREENING CLINICAL HISTORY: screening,Z12.39 TECHNIQUE: Mammograms were interpreted according to the usual protocol including computer analysis w [employer] CAD system, tomosynthesis and C-view imaging. COMPARISON: 2013 through 2022 FINDINGS: The breasts are composed of scattered fibroglandular densities, Breast Density category B. No suspicious masses or suspicious microcalcifications are seen. No skin thickening or abnormal axillary lymph nodes are seen. There has been no significant change from prior exams. IMPRESSION: BI-RADS Category 1, Negative mammogram Yearly screening mammography is recommended. Breast Density - Category B, scattered fibroglandular densities. A negative radiographic report should not delay biopsy if a dominant or clinically suspicious mass is present. Up to ten percent of cancers are not identified on mammography. A negative report may reinforce clinical impression. Adenosis and dense breasts may obscure an underlying neoplasm. False positive reports average 6 to 10%. Patient will receive a letter notifying them of these results.
== END ==
PROVIDERS: PCP Nurse Practitioner Adult Health; Visit Provider Nurse Practitioner Adult Health
DX: Z12.31 Encounter for screening mammogram for malignant neoplasm of breast (principal)
CPT/HCPCS: 77063; 77067

== ENCOUNTER → 2023-11-18 01:50 | Outpatient (CLI) | payer MEDICARE, SELFPAY ==
--- NOTE | 2023-11-18 06:45 | DI.DEXA_ITS ---
Exam(s) XR DEXA BONE DENSITY W/WO JASON EXAM: XR DEXA BONE DENSITY W/WO JASON CLINICAL HISTORY: F/U 2013,osteopenia;h/o fx,SCREENING FOR OSTEOPOROSIS IN POSTMENOPAUSAL WOM TECHNIQUE: Routine DEXA evaluation of the lumbar spine, hip, or forearm. COMPARISON: No exams were available for comparison FINDINGS: Performed on a Hologic unit. Lateral image: No compression fracture evident. Lumbar Spine total T-score: -1.5 Hip total T-score:-1.9 Independent reading at the level of the femoral neck yields T-score of -1.9 Forearm total T-score: -3.5 IMPRESSION: Bone mineral density measures in the osteopenia range for the lumbar spine and hip but in the osteopo rosis range for the wrist-forearm. Fracture risk is moderate-high Note: Any spine fracture indicates 5x risk for subsequent spine fracture and 2x risk for subsequent h ip fracture. World Health Organization criteria for BMD interpretation classify patients: Normal...... T- Score at or above -1.0 Osteopenic... T- Score between -1.0 and -2.5 Osteoporosis... T-Score at or below -2.5
== END ==
PROVIDERS: PCP Nurse Practitioner Adult Health; Visit Provider Nurse Practitioner Adult Health
DX: M85.89 Other specified disorders of bone density and structure, multiple sites (principal); Z78.0 Asymptomatic menopausal state; Z13.820 Encounter for screening for osteoporosis
CPT/HCPCS: 77080

== ENCOUNTER 2024-02-09 05:01 | Outpatient (CLI) | payer MEDICARE, SELFPAY ==
[2024-02-09 10:25] LABS: Abs Immature Grans 0.01 10^3/uL (0.0-0.06); Absolute Basophil Count 0.04 10^3/uL (0.0-0.2); Absolute Lymphocyte Count 1.94 10^3/uL (1.2-3.4); Absolute Monocyte Count 0.83 10^3/uL (0.1-0.8); Absolute Neutrophil Count 4.11 10^3/uL (1.2-6.7); Basophils % 0.6; Eosinophils % 2.8; HCT 37.9 % (36.0-46.0); HGB 12.6 g/dL (11.2-15.7); Immature Grans % 0.1; Lymphocytes % 27.2; MCH 32.6 pg (27.0-33.0); MCHC 33.2 % (32.0-36.0); MCV 98 fL (80-95); MPV 9.6 fL (8.0-11.0); Monocytes % 11.6; Neutrophils % 57.7; Platelet Count 211 10^3/uL (130-400); RBC 3.86 10^6/uL (3.93-5.22); RDW 12.3 % (11.7-14.6); RDW-SD 44.1 fL; WBC 7.13 10^3/uL (4.4-10.8)
[2024-02-09 18:57] LABS: Folate 12.4 ng/mL (See Note)
== END 2024-02-09 05:02 | disposition home or self-care (01) ==
LOC: LBO 05:01
PROVIDERS: Absent Provider Nurse Practitioner Adult Health; PCP Nurse Practitioner Adult Health; Visit Provider Nurse Practitioner Adult Health
DX: R71.8 Other abnormality of red blood cells (principal); E53.8 Deficiency of other specified B group vitamins; R53.83 Other fatigue
CPT/HCPCS: 36415; 82746; 85025

== ENCOUNTER 2024-03-11 16:13 | Emergency (ER) | payer MEDICARE, SELFPAY ==
--- NOTE | 2024-03-11 16:15 | DI.RAD_ITS ---
Exam(s) XR RIBS RT W PA LAT CHEST CLINICAL HISTORY: fall right rib pain. COMPARISON: CR XR CHEST 2V PA LATERAL from 10/26/2023 TECHNIQUE:: PA and lateral views of the chest and 3 views of the right ribs were performed. FINDINGS: LUNGS:Clear. No pleural abnormality seen. HEART: Normal. Coronary artery stent. MEDIASTINUM: Normal. BONES: No displaced rib fracture is seen. No bony destructive lesion is seen. Degenerative changes i n the thoracic spine. No compression fracture. IMPRESSION: 1. No rib fracture identified. 2. No acute pulmonary findings.
[2024-03-11 16:16] VITALS: BP 132/61; PULSE 72; TEMP 36.8; O2SAT 97
--- NOTE | 2024-03-11 16:23 | DI.RAD_ITS ---
Exam(s) XR FOREARM RT EXAM: XR FOREARM RT CLINICAL HISTORY: fall arm pain. TECHNIQUE: 2D digital imaging was performed. Two views. COMPARISON: CR,XR XR HUMERUS RT from 03/11/2024 FINDINGS: BONES: No acute fracture is present. No bony destructive lesion is seen. Visualized portion of elbow and wrist joints are unremarkable. SOFT TISSUE: Normal. IMPRESSION: Unremarkable radiographs of the left forearm. DATA REPOSITORY: RADIATION DOSE DELIVERED:
--- NOTE | 2024-03-11 16:23 | DI.RAD_ITS ---
Exam(s) XR HUMERUS RT EXAM: XR HUMERUS RT CLINICAL HISTORY: fall arm pain. TECHNIQUE: 2D digital imaging was performed. COMPARISON: CR XR DEXA BONE DENSITY W/WO JASON from 11/18/2023 FINDINGS: BONES: No acute fracture is present. No bony destructive lesion is seen. Visualized portion of elbow is unremarkable. Degenerative changes at the shoulder. SOFT TISSUE: Normal. IMPRESSION: Unremarkable radiographs of the right humerus. DATA REPOSITORY: RADIATION DOSE DELIVERED:
--- NOTE | 2024-03-11 16:25 | ED.GENADUL_ITS ---
Discharge Plan Disposition Patient Disposition: Home Condition: Improving Discharge Details Chief Complaint: Fall/Non TraumaCriteria Clinical Impression: Contusion, Fall Primary Care Provider: Tiffany Greenfield ED Provider: Timbo Etienne Home Meds and New Rx's Prescriptions: No Action (DME) blood sugar diagnostic Strip See Rx Instructions .ROUTE .MEDSUPPLY Qty: 100 3RF Rx Instructions: PROVIDE PER INSURANCE COVERAGE. QD TESTING. e11.9 no insulin (DME) lancets Misc See Rx Instructions .ROUTE .MEDSUPPLY Qty: 100 3RF Rx Instructions: Provide per insurance coverage. QD testing. E11.9 estradiol [Vagifem] 10 mcg tablet 10 mcg vaginal .Twice weekly 360 Days Qty: 30 3RF atorvastatin 40 mg tablet 40 mg PO DAILY Qty: 90 3RF cholestyramine (with sugar) 4 gram powder 1 pwd PO DAILY Qty: 348.6 0RF Rx Instructions: administer w/meal; avoid other meds within 1hr before or 4-6hr after dose atenolol 25 mg tablet 25 mg PO DAILY Qty: 90 3RF Rx Instructions: for blood pressure lisinopril 2.5 mg tablet 2.5 mg PO DAILY Qty: 90 3RF Rx Instructions: to prevent diabetes injury to the kidneys nitroglycerin [Nitrostat] 0.4 mg tablet, sublingual 0.4 mg Sublingual Q5 MIN PRN X3 PRN (Reason: chest pain) Qty: 30 0RF Patient Comments: 12/25/15 Pt states she has not required any since 10/23/15. PG dihydroergotamine [Migranal] 1 ML spray,non-aerosol 0.5 mg NS ONCE Rx Instructions: Dr. Buck cyanocobalamin (vitamin B-12) [Vitamin B-12] 250 MCG tablet 250 mcg PO DAILY Rx Instructions: Dr. Buck, Stopped 3 wks ago due to high Vit B 12 level cgc 05/27/13 cholecalciferol (vitamin D3) [Vitamin D3] 400 UNIT capsule 1,000 unit PO DAILY calcium carbonate [Tums Ultra] 400 MG tablet,chewable 2 tab PO BID Qty: 1 Patient Comments: 12/25/15 Pt states 1 tab BID. PG (DME) blood-glucose meter Misc See Rx Instructions .ROUTE .MEDSUPPLY Qty: 1 0RF Rx Instructions: REPLACE LOST METER. PROVIDE PER INSURANCE COVERAGE. QD TESTING E11.9 hydroxyzine HCl 25 mg tablet 25 mg PO BID PRN Rx Inst[place] [facility] [place]23/22 esomeprazole magnesium 40 mg capsule,delayed release(/EC) See Rx Instructions .ROUTE .COMPLEX Qty: 90 6RF Dose Instruction: TAKE ONE CAPSULE BY MOUTH EVERY DAY Rx Instructions: TAKE ONE CAPSULE BY MOUTH EVERY DAY clonazepam 0.5 mg tablet 0.25 mg PO BID PRN (Reason: anxiety) Qty: 24 5RF celecoxib [Celebrex] 100 mg capsule 100 mg PO DAILY PRN (Reason: pain) Qty: 90 0RF Rx Instructions: Back pain (do not mix with other NSAIDs) gabapentin 100 mg capsule See Rx Instructions .ROUTE .COMPLEX Qty: 180 3RF Dose Instruction: TAKE TWO CAPSULES BY MOUTH EVERY DAY AT BEDTIME FOR SHOULDER PAIN Rx Instructions: TAKE TWO CAPSULES BY MOUTH EVERY DAY AT BEDTIME FOR SHOULDER PAIN topiramate [Topamax] 200 mg tablet 100 mg PO BID Patient Comments: 05/17/19 taking 100mg in am and 200mg at night per Dr Buck 10/12/19 taking 100mg bid per Dr Arthur Rx Instructions: Dr. Buck promethazine [Promethegan] 25 MG suppository 25 mg RC PRN PRN Rx Instructions: Dr. Buck Discharge Instructions Instructions: Contusion in Adults (ED) Additional Instructions: Please follow-up closely with primary care physician. Continue with ice rest ibuprofen and/or acetaminophen as needed for pain and swelling. HPI General Date/Time Provider Initiated Documentation: 03/11/24 16:16 . HPI Narrative: 68-year-old female presents after mechanical fall from standing while bending over to load some wood at [employer], fell forward onto her right arm and right side, no loss of conscious. Pain to right arm and right ribs. Related Data Home Medications Medication Instructions Recorded Confirmed cyanocobalamin (vitamin B-12) 250 250 mcg PO DAILY 01/04/13 03/11/24 mcg tablet (Vitamin B-12) dihydroergotamine 0.5 mg/pump act. 0.5 mg NS ONCE 01/04/13 03/11/24 (4 mg/mL) nasal spray (Migranal) promethazine 25 mg rectal 25 mg RC PRN PRN 05/05/13 03/11/24 suppository (Promethegan) cholecalciferol (vitamin D3) 10 1,000 unit PO DAILY 10/23/13 03/11/24 mcg (400 unit) capsule (Vitamin D3) calcium carbonate (Tums Ultra) 2 tab PO BID ##1 11/30/14 03/11/24 topiramate 200 mg tablet (Topamax) 100 mg PO BID 12/26/19 03/11/24 blood sugar diagnostic #100 ea 05/01/20 03/11/24 lancets #100 ea 05/01/20 03/11/24 blood-glucose meter #1 ea 08/14/21 03/11/24 estradiol 10 mcg vaginal tablet 10 mcg vaginal .Twice weekly 12 03/11/22 03/11/24 (Vagifem) months #30 tabs hydroxyzine HCl 25 mg tablet 25 mg PO BID PRN 11/26/22 03/11/24 atorvastatin 40 mg tablet 40 mg PO DAILY #90 tab-caps 04/15/23 03/11/24 cholestyramine (with sugar) 4 gram 1 pwd PO DAILY #348.6 grams 05/11/23 03/11/24 oral powder esomeprazole magnesium 40 mg See Rx Instructions .Route 08/21/23 03/11/24 capsule,delayed release .COMPLEX #90 caps clonazepam 0.5 mg tablet 0.25 mg (1/2 x 0.5 mg) PO BID PRN 11/08/23 03/11/24 anxiety #24 tabs atenolol 25 mg tablet 25 mg PO DAILY #90 tab-caps 11/17/23 03/11/24 lisinopril 2.5 mg tablet 2.5 mg PO DAILY #90 tabs 11/17/23 03/11/24 nitroglycerin 0.4 mg sublingual 0.4 mg sublingual Q5 MIN PRN X3 11/17/23 03/11/24 tablet (Nitrostat) PRN chest pain #30 tabs celecoxib 100 mg capsule (Celebrex) 100 mg PO DAILY PRN pain #90 caps 12/19/23 03/11/24 gabapentin 100 mg capsule See Rx Instructions .Route 03/08/24 03/11/24 .COMPLEX #180 caps Previous Rx's Medication Instructions Recorded blood sugar diagnostic #100 ea 07/15/20 lancets #100 ea 05/01/20 blood-glucose meter #1 ea 08/14/21 estradiol 10 mcg vaginal tablet 10 mcg vaginal .Twice weekly 12 03/11/22 (Vagifem) months #30 tabs atorvastatin 40 mg tablet 40 mg PO DAILY #90 tab-caps 04/15/23 cholestyramine (with sugar) 4 gram 1 pwd PO DAILY #348.6 grams 05/11/23 oral powder esomeprazole magnesium 40 mg See Rx Instructions .Route 08/21/23 capsule,delayed release .COMPLEX #90 caps clonazepam 0.5 mg tablet 0.25 mg (1/2 x 0.5 mg) PO BID PRN 11/08/23 anxiety #24 tabs atenolol 25 mg tablet 25 mg PO DAILY #90 tab-caps 11/17/23 lisinopril 2.5 mg tablet 2.5 mg PO DAILY #90 tabs 11/17/23 nitroglycerin 0.4 mg sublingual 0.4 mg sublingual Q5 MIN PRN X3 11/17/23 tablet (Nitrostat) PRN chest pain #30 tabs celecoxib 100 mg capsule (Celebrex) 100 mg PO DAILY PRN pain #90 caps 12/19/23 gabapentin 100 mg capsule See Rx Instructions .Route 03/08/24 .COMPLEX #180 caps Allergies Allergy/AdvReac Type Severity Reaction Status Date / Time epinephrine Allergy Severe Other (See Verified 03/11/24 16:24 Comment) morphine Allergy Skin Rash Verified 03/11/24 16:24 Penicillins Allergy Skin Rash Verified 03/11/24 16:24 venom-honey bee Allergy Psychosis Verified 03/11/24 16:24 amitriptyline AdvReac super Verified 03/11/24 16:24 anxious oxycodone AdvReac nausea and Verified 03/11/24 16:24 vomiting pentazocine lactate AdvReac Visual Verified 03/11/24 16:24 [From Alyce] Disturbances sumatriptan AdvReac Cardiac Verified 03/11/24 16:24 Dysrythmia General Stated Complaint: Fall/Non TraumaCriteria REID: 3 Review of Systems Narrative: Review of Systems Constitutional: negative Eyes: negative ENT: negative Cardiovascular: negative Respiratory: negative Gastrointestinal: negative : negative Musculoskeletal: Right arm pain, right rib pain Skin: negative Neurologic: negative Psych: negative Exam Narrative Exam Narrative: Physical Examination General: alert, awake, cooperative, resting comfortably, no acute distress HEENT: normocephalic, atraumatic; PERRL, EOM intact, conjunctiva normal; no nasal discharge; moist mucous membranes, oral and pharyngeal mucosa normal, tolerating secretions Neck: supple, trachea midline; full ROM Chest: normal to inspection Respiratory: normal respiratory effort, speaking in full sentences, clear to auscultation, no wheezing, rales or rhonchi Cardiac: regular rate, regular rhythm, S1S2 intact, no murmurs rubs or gallops GI: abdomen soft, non-tender, non-distended; no palpable mass or hepatosplenomegaly Skin: no lesions, rashes or trauma appreciated Neuro: AAOx3, normal speech, moving all extremities Extremities: Discomfort to distal right humerus and mid forearm on right, no external signs of deformity, no abrasions lacerations or ecchymosis, range of motion of fingers wrist elbow and shoulder intact, warm well-perfused strong radial pulse, median radial and ulnar nerve sensory distribution intact Psych: Appropriate mood and affect Course Vital Signs Vital signs: Vital Signs Temperature 36.8 C 03/11/24 16:16 Pulse 72 03/11/24 16:16 Blood Pressure 132/61 03/11/24 16:16 Pulse Oximetry 97 03/11/24 16:16 Temperature 36.8 C 03/11/24 16:16 Temperature Source Temporal Artery Scan 03/11/24 16:16 Pulse 72 03/11/24 16:16 Blood Pressure 132/61 03/11/24 16:16 Blood Pressure Position Sitting 03/11/24 16:16 Pulse Oximetry 97 03/11/24 16:16 Oxygen Delivery Method Room Air 03/11/24 16:16 Oxygen Flow Rate 0 03/11/24 16:16 Medical Decision Making 68-year-old female presents with right arm and right rib pains after mechanical fall from standing. No loss of conscious hemodynamically stable no acute distress no respiratory symptoms, lungs clear bilaterally, neurovascular exam of limb intact, consider limb contusion versus must consider radial ulnar or humerus fracture muscles consider rib fracture versus rib contusion low suspicion for pneumothorax. No evidence of cranial injury or lower extremity injury. Will provide analgesia will perform screening x-ray of chest ribs, humerus and forearm. 17: 55 possible nondisplaced eighth rib fracture per V rad report however in- house radiology read as negative, upper extremity x-ray unremarkable. Patient resting notably no acute distress neurovascularly intact, given home care inst ructions and return precautions for any worsening symptoms. Will follow-up closely as an outpatient with regards to acute on chronic shoulder injury. Quality:SDOH Health Related Social Needs: No Data to Display PFSH All Active Problems (Updated 03/11/24 @ 17:57 by Timbo Etienne MD) Fall (Acute) Contusion (Acute) Osteoporosis (Chronic ~11/2023) DEXA 11/2023: Bone mineral density measures in the osteopenia range for the lumbar spine and hip but in the osteoporosis range for the wrist-forearm. Fracture risk is moderate-high Folate deficiency (Acute ~2014) Fatigue (Acute) Cognitive decline (Acute) per pt report and her family's concern .. 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 Reportedly getting weakness in her arms and legs since the cardiac cath and has noted slightly more swelling in the left leg when active. Benign hypertension (Chronic) Hyperlipidemia (Chronic) Migraine (Chronic) Shoulder pain (Active ~2011) Left shoulder strain, May 2012, when she was hit by her dog. Currently in Physical Therapy. Thoracic radiculopathy (Active) Presumed nerve entrapment from cholecystectomy. 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 Normal MRI, MRA. Video EEG monitoring and withdrawl of Topamax Klonopin did not produce any epileptic abnormalities or any of her typical spells. EEG remained normal. ( 07/11/12) Irritable bowel (Chronic) Type 2 diabetes mellitus without complication (Acute) Atypical chest pain (Chronic) Chronic kidney disease (CKD) (Chronic) GERD (gastroesophageal reflux disease) (Chronic) Postcholecystectomy diarrhea (Acute) SBO (small bowel obstruction) (Acute) Fecal soiling due to fecal incontinence (Acute) Medical History (Updated 03/11/24 @ 17:57 by Timbo Etienne MD) COVID (~10/05/23) Pain in right toe(s) ?Podiatry vs. PT for orthopedics Diverticula of colon (~03/2022) Atypical angina pt. states she doesn't have an issues with this. 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 Rosenbaum. Crushing injury of right index finger, initial encounter Need for prophylaxis against urinary tract infection Vertigo Visit for review of DEXA scan (02/13/14) T -2.8 wrist,normal elsewhere. NOT osteoporosis since osteoporosis not defined by wrist density. Rheumatology 4-2013 Right shoulder tendinitis (10/22/15) Dissociative disorder (05/16/13) Agoraphobia Surgical History History of colonoscopy (~03/03/22) Poor prep, repeat 5 yrs, [place] Trigger point of left shoulder region parascapular Status post percutaneous transluminal coronary angioplasty (01/06/13) S/P stent of completely occluded mid-LAD Oophrectomy, Both Abdominal hysterectomy Cholecystectomy Appendectomy Family History Mother Essential hypertension Cancer Breast cancer then Ovarian cancer. Ovarian cancer surgery revealed ovarian cancer wrapped around the colon. Nothing done, 2 wks later Breast cancer Ovarian cancer Father , Lewy body Essential hypertension Lewy body dementia Diabetes insipidus Hyperlipidemia Sister Essential hypertension Alcohol abuse complicated by CKD requiring dialysis; refused dialysis so of CKD Brother Essential hypertension Alcohol abuse Cirrhosis; of heart attack Heart disease Brother Prostate cancer metastatic to lungs; resected; recurred; suicide Alcohol abuse Depression suicide Social History Smoking/Tobacco Use Status: Never Smoking risk assessment performed?: Yes Alcohol Intake: never Drug use: Daily Substance use type: marijuana Details: Pt smokes marijuana and uses edibles 03/11/24 Adopted: No Caregiver/Support person: No Foster care: No Household members: spouse Housing: house Number of Children: 3 number of grandchildren: 6 Communication Needs: None and Corrective Lenses Education Level: college Do you need help understanding health information?: Rarely current occupation: [employer] Pets and animals: Yes Pets and animals: cat(s) and dog(s) Sexually active: Yes Do you think of yourself as: straight/heterosexual Current gender identity: female What is your relationship status?: How often do you talk on the phone with friends or family?: three or more times per week How often do you get together with friends or relatives?: three or more times per week Do you belong to any clubs or organized social groups?: no Panel score (0-1 are the most socially isolated patients): 2 What type of physical activity do you participate in: regular exercise Duration: > 90 minutes/day Frequency: 5-6 times per week Darshana/Anglican: Anglican Seatbelt use: always Helmet use: Yes Helmet use: other Details: No reason to wear one 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
[2024-03-11] MEDS: Ketorolac 15 MG/ML VIAL IM (16:36)
[2024-03-11] MEDS: Acetaminophen 325 MG TAB 650 MG PO (16:36)
--- NOTE | 2024-03-11 17:15 | DI.VRAD_ITS ---
PROCEDURE INFORMATION: Exam: XR Chest Exam date and time: 03/11/2024 4:42 PM Age: 68 years old Clinical indication: Other: Fall right rib pain TECHNIQUE: Imaging protocol: Radiologic exam of the chest. Views: 2 views. COMPARISON: CR XR CHEST 2V PA LATERAL 06/18/2024 09:20 FINDINGS: Limitations: The area of clinical concern was not marked with a BB. Lungs: Unremarkable. No consolidation. Pleural spaces: Unremarkable. No pleural effusion. No pneumothorax. Heart/Mediastinum: Calcified coronary arteries. Vasculature: Atherosclerotic disease. Bones/joints: Degenerative scoliotic changes of the spine. Possible nondisplaced right anterolateral 8th rib fracture. Intraperitoneal space: Surgical clips in the right upper quadrant. IMPRESSION: 1. Possible right nondisplaced 8th rib fracture. Limitations as discussed above. 2. No acute cardiopulmonary disease. Dictated and Authenticated by: Kelly Muller MD. Ordering:KAITLIN Izquierdo MD
--- NOTE | 2024-03-11 17:17 | DI.VRAD_ITS ---
PROCEDURE INFORMATION: Exam: XR Right Forearm Exam date and time: 03/11/2024 4:50 PM Age: 68 years old Clinical indication: Other: Right arm pain TECHNIQUE: Imaging protocol: Radiologic exam of the right forearm. Views: 2 views. COMPARISON: CR XR FINGER RT INDEX 08/26/2020 14:34 FINDINGS: Bones/joints: Unremarkable. Soft tissues: Unremarkable. IMPRESSION: No evidence for acute bony injury. If clinical symptoms persist recommend followup film in 7-10 days. Dictated and Authenticated by: Kelly Muller MD. Ordering:KAITLIN Izquierdo MD
--- NOTE | 2024-03-11 17:18 | DI.VRAD_ITS ---
PROCEDURE INFORMATION: Exam: XR Right Humerus Exam date and time: 03/11/2024 4:48 PM Age: 68 years old Clinical indication: Other: Fall right arm pain TECHNIQUE: Imaging protocol: Radiologic exam of the right humerus. Views: 2 or more views. COMPARISON: CR XR RIBS RT PA CHEST 3V 11/03/2024 16:42 FINDINGS: Bones/joints: Unremarkable. Soft tissues: Unremarkable. IMPRESSION: No acute bony findings. If clinical symptoms persist recommend followup film in 7-10 days. Dictated and Authenticated by: Kelly Muller MD. Ordering:KAITLIN Izquierdo MD
[2024-03-11 18:00] VITALS: BP 137/73; PULSE 65; RESP 14; O2SAT 99
== END 2024-03-11 18:01 | disposition home or self-care (01) ==
PROVIDERS: Emergency Provider Emergency Medicine; PCP Nurse Practitioner Adult Health
DX: M79.601 Pain in right arm (principal); R07.81 Pleurodynia; W19.XXXA Unspecified fall, initial encounter; Y93.89 Activity, other specified; Y92.512 Supermarket, store or market as the place of occurrence of the external cause; I12.9 Hypertensive chronic kidney disease with stage 1 through stage 4 chronic kidney disease, or unspecified chronic kidney disease; M18.9 Osteoarthritis of first carpometacarpal joint, unspecified; E78.5 Hyperlipidemia, unspecified; Z79.899 Other long term (current) drug therapy
CPT/HCPCS: 96372; 99284; 71046; 71100; 73060; 73090; J1885

== ENCOUNTER 2024-05-10 01:23 | Outpatient (CLI) | payer MEDICARE, SELFPAY ==
[2024-05-10 07:41] LABS: Hemoglobin A1C 5.7 % (<5.7)
[2024-05-10 08:07] LABS: ALT 16 U/L (14-59); AST 9 U/L (15-37); Albumin 3.6 g/dL (3.4-5.0); Alkaline Phosphatase 83 U/L (46-116); Anion Gap 8.2 mmol/L (3-11); BUN 18 mg/dL (7-18); Bilirubin, Total 0.25 mg/dL (0.2-1.0); CO2 26.8 mmol/L (21.0-32.0); CREATININE 1.2 mg/dL (0.55-1.02); Calcium 9.6 mg/dL (8.5-10.1); Calculated LDL 95 mg/dL (<100); Chloride 109 mmol/L (98-107); Cholesterol 175 mg/dL (<200); Folate 7.9 ng/mL (8.6-20.0); Glucose 120 mg/dL (74-106); HDL Cholesterol 49 mg/dL (40-60); Sodium 144 mmol/L (136-145); Total Protein 7.2 g/dL (6.4-8.2); Triglyceride 159 mg/dL (<150)
== END 2024-05-10 01:24 | disposition home or self-care (01) ==
LOC: LBO 01:23
PROVIDERS: PCP Nurse Practitioner Adult Health; Referring Provider Nurse Practitioner Adult Health; Visit Provider Nurse Practitioner Adult Health
DX: E11.9 Type 2 diabetes mellitus without complications (principal); N18.9 Chronic kidney disease, unspecified; E78.5 Hyperlipidemia, unspecified; E53.8 Deficiency of other specified B group vitamins; R53.83 Other fatigue
CPT/HCPCS: 36415; 80053; 80061; 82746; 83036

== ENCOUNTER 2024-06-08 14:10 | Outpatient (REF) | payer MEDICARE, SELFPAY ==
[2024-06-08 16:33] LABS: *AMPHETAMINES SCREEN URINE Negative (Negative); *BARBITURATES SCREEN URINE Negative (Negative); *BENZODIAZEPINES SCREEN URINE Negative (Negative); Cannabinoids THC Positive (Negative); Cocaine Screen,Urine Negative (Negative); METHADONE URINE SCREEN Negative (Negative); OPIATES URINE SCREEN Negative (Negative)
[2024-06-08 16:34] LABS: Tricyclic Antidepressants Negative (Negative)
[2024-06-08 21:40] LABS: Lab Add On Test DONE
[2024-06-15 15:57] LABS: 2-OH-Ethyl-Flurazepam Negative ng/mL (Cutoff: 10); 7-NH-Clonazepam 15 ng/mL (Cutoff: 10); 7-NH-Flunitrazepam Negative ng/mL (Cutoff: 10); Alpha OH-Alprazolam Negative ng/mL (Cutoff: 10); Alpha-OH Midazolam Negative ng/mL (Cutoff: 10); Alpha-OH-Triazolam Negative ng/mL (Cutoff: 10); Alprazolam Negative ng/mL (Cutoff: 10); Benzodiazepines Interpretation Positive.; Chlordiazepoxide Negative ng/mL (Cutoff: 10); Clobazam Negative ng/mL (Cutoff: 10); Clonazepam Negative ng/mL (Cutoff: 10); Diazepam Negative ng/mL (Cutoff: 10); Flurazepam Negative ng/mL (Cutoff: 10); Lorazepam Negative ng/mL (Cutoff: 10); Midazolam Negative ng/mL (Cutoff: 10); N-Desmethylclobazam Negative ng/mL (Cutoff: 10); Prazepam Negative ng/mL (Cutoff: 10); Temazepam Negative ng/mL (Cutoff: 10); Triazolam Negative ng/mL (Cutoff: 10); Zolpidem Carboxylic acid Negative ng/mL (Cutoff: 10)
== END 2024-06-08 14:11 | disposition home or self-care (01) ==
LOC: LBN 14:10
PROVIDERS: PCP Nurse Practitioner Adult Health; Visit Provider Nurse Practitioner Adult Health
DX: Z79.899 Other long term (current) drug therapy (principal)
CPT/HCPCS: 80307; 80346

== ENCOUNTER 2024-10-16 14:53 | Outpatient (REF) | payer MEDICARE, SELFPAY ==
[2024-10-16 21:58] LABS: Anion Gap 11.6 mmol/L (3-11); BUN 16 mg/dL (7-18); CO2 24.4 mmol/L (21.0-32.0); CREATININE 1.1 mg/dL (0.55-1.02); Calcium 9.2 mg/dL (8.5-10.1); Chloride 109 mmol/L (98-107); Estimated GFR 54.06 (mL/min/1.73m2); Glucose 112 mg/dL (74-106); Potassium 4.2 mmol/L (3.5-5.1); Sodium 145 mmol/L (136-145)
== END 2024-10-16 14:54 | disposition home or self-care (01) ==
LOC: LBN 14:53
PROVIDERS: PCP Nurse Practitioner Adult Health; Visit Provider Physician Assistant
DX: N39.0 Urinary tract infection, site not specified (principal); N12 Tubulo-interstitial nephritis, not specified as acute or chronic
CPT/HCPCS: 80048; 87077; 87086; 87186

== ENCOUNTER 2024-12-19 02:17 | Outpatient (CLI) | payer MEDICARE, SELFPAY ==
--- NOTE | 2024-12-19 07:45 | DI.RAD_ITS ---
Exam(s) XR CHEST 2V PA LATERAL EXAM: XR CHEST 2V PA LATERAL CLINICAL HISTORY: ? acute process,chronic cough,r05.3 TECHNIQUE: 2D digital imaging was performed. Two views. COMPARISON: CR,XR XR RIBS RT W PA LAT CHEST from 03/11/2024 FINDINGS: HEART: Normal size. Coronary artery stent. Aorta: Not dilated. PULMONARY VASCULATURE: Normal. MEDIASTINUM: Unremarkable. LUNGS: Clear. PLEURAL SPACE: No pleural effusion or pneumothorax. BONE:Unremarkable for age. SOFT TISSUES: Unremarkable. IMPRESSION: No acute abnormality. DATA REPOSITORY: RADIATION DOSE DELIVERED:
== END 2024-12-19 02:37 ==
PROVIDERS: PCP Nurse Practitioner Adult Health; Visit Provider Nurse Practitioner Adult Health
DX: R05.3 Chronic cough (principal)
CPT/HCPCS: 71046

== ENCOUNTER 2025-07-18 03:59 | Outpatient (CLI) | payer MEDICARE, SELFPAY ==
[2025-07-18 13:30] LABS: ALT 20 U/L (14-59); AST 11 U/L (15-37); Albumin 3.5 g/dL (3.4-5.0); Alkaline Phosphatase 97 U/L (46-116); Anion Gap 8.1 mmol/L (3-11); BUN 17 mg/dL (7-18); Bilirubin, Total 0.3 mg/dL (0.2-1.0); CO2 26.9 mmol/L (21.0-32.0); Calcium 8.7 mg/dL (8.5-10.1); Calculated LDL 215 mg/dL (<100); Chloride 107 mmol/L (98-107); Cholesterol 297 mg/dL (<200); Estimated GFR 53.72 (mL/min/1.73m2); Folate 5.9 ng/mL (8.6-20.0); Glucose 113 mg/dL (74-106); HDL Cholesterol 43 mg/dL (>or=50); Potassium 4.0 mmol/L (3.5-5.1); Sodium 142 mmol/L (136-145); Total Protein 7.4 g/dL (6.4-8.2); Triglyceride 196 mg/dL (<150); Vitamin B12 375 pg/mL (193-986)
== END 2025-07-18 04:00 | disposition home or self-care (01) ==
LOC: LBO 04:00
PROVIDERS: PCP Nurse Practitioner Adult Health; Referring Provider Nurse Practitioner Adult Health; Visit Provider Nurse Practitioner Adult Health
DX: I10 Essential (primary) hypertension (principal); E78.5 Hyperlipidemia, unspecified; E11.9 Type 2 diabetes mellitus without complications; E53.8 Deficiency of other specified B group vitamins; R05.3 Chronic cough; N18.9 Chronic kidney disease, unspecified; K21.9 Gastro-esophageal reflux disease without esophagitis
CPT/HCPCS: 36415; 80053; 80061; 82607; 82746

== ENCOUNTER 2025-08-02 05:50 | Outpatient (CLI) | payer MEDICARE, SELFPAY ==
--- NOTE | 2025-08-02 07:00 | DI.NM_ITS ---
APPROVED REPORT Exam: Pharmacologic Patient Location: Out-Patient Room/Bed: Stress Nurse: Parmjit Romero RN Ordering Provider:ELISSA VILLARREAL, Contact Number: [phone] BMI: 25.23 Baseline Rhythm: Sinus Rhythm. Indications: ? Ischemia; Coronary Arteriosclerosis; Chest Pain at Rest. Medical History Medical History: Osteoporosis; Hx of Dissociative Disorder; CAD; HLD; HTN; Diabetes Mellitus Type 2; CKD; GERD; Small Bowel Obstruction; COVID (pt. states she has long COVID); Atypical Angina; Vertigo; Agoraphobia. Cardiac Medications: Atenolol; Atorvastatin; Celecoxib; Clonazepam; Esomeprazole; Magnesium; Estradiol; Gabapentin; Hydroxyzine; Nitroglycerin; Promethazine; Topamax; Migranal. Allergies: Epinephrine; Morphine; Penicillins; Honey Bee Venom; Amitriptyline; Oxycodone; Talwin; Sumatriptan. Cardiac Risk Factors: Family Hx; HLD; HTN; CVD; Diabetes Mellitus Type 2. Previous Cardiac Procedures: Stents 01/06/13. Pretest Chest Pain Characteristics: None. Exercise History: Indeterminate. Physical Disabilities: Back problems; Long COVID (pt. states she gets fatigued and SOB easily). Lung Sounds: Clear bilaterally throughout, anterior and posterior. Heart Sounds: S1 and S2 auscultated. Stress Test Details Test: Pharmacologic stress was paired with low level exercise. Reason for pharmacologic stress test: physical limitation. Nuclear Acquisition: Rest Tc-99m/Stress Tc-99m 1 day Rest Isotope: Tc-99m Sestamibi. Dose: 10.0 Date: 08/02/2025 Injection Time: 0830 Stress Isotope: Tc-99m Sestamibi. Dose: 30.0 Date: 08/02/2025 Injection Time: 1030 HR Resting HR Supine: 61 bpm Max Heart Rate (APMHR): 149 bpm Resting HR Standin bpm Target HR (85% APMHR): 127 bpm Max HR Achieved: 128 bpm % of APMHR: 86 Recovery HR: 75 bpm HR response to stress: Normal HR response to stress. BP Resting BP Supine: 126/72 mmHg Resting BP Standin/82 mmHg Max BP: 170/82 mmHg Recovery BP: 122/76 mmHg BP response to stress: Normal blood pressure response to stress. ECG Resting ECG: Sinus Rhythm. Ectopy: None. Stress ECG: Sinus Tachycardia. ST Change: No significant ST segment changes noted. Arrhythmia: None. Recovery ECG: Sinus Rhythm. Recovery ST Change: No significant ST segment changes noted. Recovery Arrhythmia: None. Clinical Stress Symptoms: Dyspnea; Left Arm Discomfort/Pain. Angina Score: None Rate Pressure Product: 20016 Stress ECG Conclusion 1. Resting EKG showed low voltage 2. Patient underwent testing using combination of low-level exercise and pharmacologic stress with regadenoson 3. Peak heart rate achieved was 86% of maximal predicted for age 4. The electrocardiographic portion of the test did not demonstrate any myocardial ischemia 5. See MPI report Stress Test Summary STAGE HR BP SpO2 Symptoms NOTES Supine 61 126/72 93 Standing 69 140/82 96 1 min post Lexiscan injection 93 128/70 96 Pt. c/o moderate shortness of breath. Pt. also c/o having left arm pain; pt. states, I just felt like I kept needing to shake it while I was walking. Pt. was unable to verbalize a numerical pain level or verbalize a clear description of the pain. Pt. denied any radiation of the pain. 3 min post Lexiscan injection 90 170/82 98 Pt. c/o moderate shortness of breath, but states that the left arm pain has resolved. 6 min post Lexiscan injection 72 150/74 98 Pt. c/o mild shortness of breath and nausea. Pt. was encouraged to go and get a coffee and a snack following the stress portion of the exam to help with symptom management. 9 min post Lexiscan injection 75 122/76 98 Pt. denied all shortness of breath and nausea and states that all symptoms have resolved. Pt. performed a NM MPI stress test using a walking lexiscan protocol. Walking lexiscan protocol was used due to pt. stating that she has a history of back problems and a history of long COVID, which causes her to become fatigued and SOB easily. Pt. met her target heart rate using the lexiscan. Pt. c/o moderate shortness of breath, nausea, and left arm pain during the stress test. Immediately post lexiscan injection, pt. c/o moderate shortness of breath. Pt. also c/o having left arm pain; pt. states, I just felt like I kept needing to shake it while I was walking. Pt. was unable to verbalize a numerical pain level or verbalize a clear description of the pain. Pt. denied any radiation of the pain. At 3 minutes post lexiscan injection, pt. c/o moderate shortness of breath, but states that the left arm pain has resolved. At 6 minutes post lexiscan injection, pt. c/o mild shortness of breath and nausea. At 9 minutes post lexiscan injection, pt. denied all shortness of breath and nausea and states that all symptoms have resolved. Pt. was encouraged to go and get a coffee and a snack following the stress portion of the exam to help with symptom management. Pt. declined to go and get a coffee and a snack, stating that she just wanted to go and sit in the waiting room. Pt. was conversing pleasantly with nursing staff upon leaving the Stress Lab. Pt. left ambulatory in no apparent distress. MPI Conclusion Myocardial perfusion is normal. There is no ischemia or evidence of prior infarction Ejection fraction is 65% with hyperdynamic wall motion
[2025-08-02] MEDS: Regadenoson 0.4 MG/5 ML SYR IVP (10:29)
== END 2025-08-02 06:10 ==
LOC: DI 05:50
PROVIDERS: PCP Nurse Practitioner Adult Health; Visit Provider Nurse Practitioner Adult Health
DX: I25.10 Atherosclerotic heart disease of native coronary artery without angina pectoris (principal); R07.9 Chest pain, unspecified
CPT/HCPCS: 78452; 93016; 93018; 93017; J2785